=== PATIENT | male | born 1960 | race Caucasian/White ===

== ENCOUNTER 2022-07-23 07:53 | Emergency (ER) | payer BC, OTHER ==
--- OUTSIDE RECORDS SUMMARY | 2022-07-23 08:00 | XMS REPORT | Continuity of Care Document ---
:1960 Author Organization [facility] t Address [address] [place] [address] Care Team Providers Name Role Phone RENITA CUELLO Primary Care Physician Unavailable Renita Cuello Attending Clinician Unavailable Booker Verdin Attending Clinician Unavailable BHAVNA GANNON Attending Clinician Unavailable Bhavna Gannon MD Attending Clinician Doctor Unassigned, [place] Attending Clinician Unavailable Payers Payer Name Policy Type Policy Number Effective Date Expiration Date S dre Blue Cross 6 [id number] 2017 Common Sp[facility] t Blue Shield of 00:00:00 - [facility] HEALTH [id number] 2017 SELECT 00:00:00 Problems Condition Condition Condition Status Onset Resolution Last Treating Co mments Source Name Details Category Date Date Treatment Clinician Date No known No known Disease Unive rs active active ity of problems problems [facility] [id number] Severe Problem Common obesity Spirit (BMI >= - CHI 40) [facility] [id number] RBBB Problem Common [facility] - [facility] [id number] Cardiac Problem Commo n arrhythmia Spirit , - CHI unspecifie St d cardiac [facility] arrhythmia Medica l type Center Obstructiv Obstructiv Problem C ommon e sleep e sleep Spirit apnea apnea - [facility] (adult) (pediatric [facility] ) [facility] Type II Type 2 Problem Common diabetes diabetes Spirit mellitus - CHI without St complicati [facility] on Medical Center Hyperlipid Hyperlipid Problem C ommon emia emia Spirit - [facility] Hypertensi Hypertensi Problem C ommon on on Spirit - [facility] [id number] Dependence Problem Co mmon on other Spirit enabling - CHI machines [facility] [id number] Obesity, Problem Comm on unspecifie Spirit d - [facility] [id number] Type 2 Problem Common diabetes Spirit mellitus - [facility]I with other St specified [facility] complicati Medica l on Center [id number] Essential Problem Comm on hypertensi Spirit on - [facility] [id number] Depression Problem Com mon with Spirit anxiety - [facility] [id number] Difficulty Problem Co mmon sleeping Spirit - [facility] [id number] Irritabili Problem Co mmon ty and Spirit anger - [facility] [id number] Work-relat Problem Co mmon ed stress Spirit - [facility] [id number] Obesity Problem Commo n (BMI Spirit 30-39.9) - [facility] [id number] Erectile Problem Comm on dysfunctio Spirit n, - CHI unspecifie d erectile [facility] dysfunctio Medica l n type Center [id number] Osteoarthr Problem C ommon [id number] itis of Spirit right - CHI knee, St unspecifie [facility] d Medical osteoarthr Center itis type [id number] Mixed Problem Common hyperlipid Spirit emia - [facility] [id number] Arthritis Problem Co mmon [id number] of knee, Spirit left - [facility] [id number] Seasonal Problem Comm on allergies Spirit - [facility] [id number] Diabetic Problem Comm on polyneurop Spirit athy - CHI associated St with type [facility] 2 diabetes Medica l mellitus Center [id number] Bilateral Problem Com mon primary Spirit osteoarthr - [facility]I itis of [facility] [id number] Other Problem Common chronic Spirit pain - [facility] Allergies, Adverse Reactions, Alerts Allergy Allergy Status Severity Reaction(s) Onset Inactive Treating Comm ents Source Name Type Date Date Clinician NO KNOWN Drug Active Univers ALLERGIE Class ity of S [facility] Social History Social Habit Start Date Stop Date Quantity Comments Source History of Common Spirit - Tobacco Use [facility] Sex Assigned At Common Sp glory - [facility] Exposure to 2022-04-09 2022-04-19 Not sure University [facility]-CoV-2 00:00:00 08:21:00 [facility] (event) [place] Tobacco use and 2022-04-19 2022-04-19 Smokeless tobacco Un iversity of exposure 00:00:00 00:00:00 non-user [facility] Alcohol intake 2022-04-19 2022-04-19 Lifetime University of 00:00:00 00:00:00 non-drinker [facility] [place] [facility] (finding) [place] Smoking Status Start Date Stop Date Source Never Smoker [facility] Former Smoker 2021-09-06 00:00:00 2021-09-06 00:00:00 [facility] pirit [facility] Medications Ordered Filled Start Stop Current Ordering Indication Dosage Frequency Signature Comments Components Source Medication Medication Date Date Medication? Clinician (SIG) Name Name modafiniL Yes Univers 200 mg 8-29 ity of tablet 00:00: [address] modafiniL Yes Univers 200 mg 8-29 ity of tablet 00:00: [address] Modafinil Modafinil No Modafinil 200 MG 200 MG 8-29 200 MG 00:00: 00 Modafinil Modafinil 0 No Modafinil 200 MG 200 MG 8-29 200 MG 00:00: 00 Modafinil Modafinil 0 No Modafinil 200 MG 200 MG 8-29 200 MG 00:00: 00 BINAXNOW Yes TEST Univer s COVID-19 AG 8-05 DIRECTED ity of SELF TEST 00:00: TODAY [address] BINAXNOW 0 Yes TEST Univer s COVID-19 AG 8-05 DIRECTED ity of SELF TEST 00:00: TODAY [address] atorvastati Yes 10mg Take 10 mg Univers n 10 mg 8-01 by mouth ity of tablet 00:00: in the [place] 00 morning. Medical Branch TRULICITY Yes INJECT Univer s 4.5 mg/0.5 8-01 4.5MG ity of mL PnIj 00:00: UNDER THE [place] 00 SKIN ONCE Medical A WEEK Branch JARDIANCE Yes Univers 25 mg Tab 8-01 ity of 00:00: [place] [facility] lisinopriL- Yes 1{tbl} Take 1 Un maricel hydrochloro 8-01 tablet by ity of thiazide 00:00: mouth in [place] 20-25 mg 00 the Medical per tablet morning. [facility] atorvastati Yes 10mg Take 10 mg Univers n 10 mg 8-01 by mouth ity of tablet 00:00: in the [place] morning. Medical Branch TRULICITY Yes INJECT Univer s 4.5 mg/0.5 8- 4.5MG ity of mL PnIj 00:00: UNDER THE [place] 00 SKIN ONCE Medical A WEEK Branch JARDIANCE Yes Univers 25 mg Tab 8- ity of 00:00: [place] [facility] lisinopriL- Yes 1{tbl} Take 1 Un maricel hydrochloro 8-01 tablet by ity of thiazide 00:00: mouth in [place] 20-25 mg 00 the Medical per tablet morning. [facility] Trulicity Trulicity 2022- No Trulicity 4.5 4.5 03-18 4.5 MG/0.5ML MG/0.5ML 00:00: 00:00 MG/0.5ML 00 :00 Trulicity Trulicity 2022- No Trulicity 4.5 4.5 8-09-13 4.5 MG/0.5ML MG/0.5ML 00:00: 00:00 MG/0.5ML 00 :00 Trulicity Trulicity 2021-2022- No Trulicity 4.5 4.5 8-09-13 4.5 MG/0.5ML MG/0.5ML 00:00: 00:00 MG/0.5ML 00 :00 Trulicity Trulicity 2022- No Trulicity 4.5 4.5 8-09-13 4.5 MG/0.5ML MG/0.5ML 00:00: 00:00 MG/0.5ML 00 :00 Modafinil Modafinil 2022-0 2022- No QD Modafinil 200 MG 200 MG 03-14 200 MG 00:00: 00:00 00 :00 Modafinil Modafinil 2022-0 2022- No QD Modafinil 200 MG 200 MG 03-14 200 MG 00:00: 00:00 00 :00 Modafinil Modafinil 2022-0 2022- No QD Modafinil 200 MG 200 MG 03-14 200 MG 00:00: 00:00 00 :00 Modafinil Modafinil 2022-0 2022- No QD Modafinil 200 MG 200 MG 03-14 200 MG 00:00: 00:00 00 :00 Modafinil Modafinil 2022-0 2022- No QD Modafinil 200 MG 200 MG 02-11 200 MG 00:00: 00:00 00 :00 Modafinil Modafinil 2022-0 2022- No QD Modafinil 200 MG 200 MG 02-11 200 MG 00:00: 00:00 00 :00 Modafinil Modafinil 2022-0 No Modafinil 200 MG 200 MG 2-04 200 MG 00:00: 00 Modafinil Modafinil 2022-0 No Modafinil 200 MG 200 MG 2-04 200 MG 00:00: 00 Trulicity Trulicity 2-0 2022- No Trulicity 1.5mg/0.5ml 1.5mg/0.5ml 08-30 1.5mg/0.5m 00:00: 00:00 l 00 :00 Trulicity Trulicity 2022-0 2022- No Trulicity 1.5mg/0.5ml 1.5mg/0.5ml 08-30 1.5mg/0.5m 00:00: 00:00 l 00 :00 Trulicity Trulicity 2-0 2022- No Trulicity 1.5mg/0.5ml 1.5mg/0.5ml -13 07-12 1.5mg/0.5m 00:00: 00:00 l 00 :00 Modafinil Modafinil 2020- 2022- No 1{table QD Modafinil 200 MG 200 MG 10-10 t_in_th 200 MG 00:00: 00:00 e_morni 00 :00 ng} Modafinil Modafinil 2020- 2022- No 1{table QD Modafinil 200 MG 200 MG 10-10 t_in_th 200 MG 00:00: 00:00 e_morni 00 :00 ng} Modafinil Modafinil 2020-2- No 1{table QD Modafinil 200 MG 200 MG 10-10 t_in_th 200 MG 00:00: 00:00 e_morni 00 :00 ng} Modafinil Modafinil 2020-1 No Modafinil 200 MG 200 MG 0-15 200 MG 00:00: 00 Modafinil Modafinil 2020-1 No Modafinil 200 MG 200 MG 0-15 200 MG 00:00: 00 Modafinil Modafinil 2020-1 No Modafinil 200 MG 200 MG 0-15 200 MG 00:00: 00 Modafinil Modafinil 2020-1 No Modafinil 200 MG 200 MG 0-15 200 MG 00:00: 00 Modafinil Modafinil 2021-0 No 1{table QD Modafinil 200 200 9-08 t_in_th 200 00:00: e_morni 00 ng} Modafinil Modafinil 2021-0 No 1{table QD Modafinil 200.000 200.000 9-08 t_in_th 200.000 00:00: e_morni 00 ng} Modafinil Modafinil 2021-0 No 1{table QD Modafinil 200 200 9-08 t_in_th 200 00:00: e_morni 00 ng} Modafinil Modafinil 2021-0 No 1{table QD Modafinil 200.000 200.000 9-08 t_in_th 200.000 00:00: e_morni 00 ng} Modafinil Modafinil 2021-0 No 1{table QD Modafinil 200 200 -08 t_in_th 200 00:00: e_morni 00 ng} Modafinil Modafinil 2021-0 No 1{table QD Modafinil 200.000 200.000 - t_in_th 200.000 00:00: e_morni 00 ng} Modafinil Modafinil 2021-0 No 1{table QD Modafinil 200.000 200.000 - t_in_th 200.000 00:00: e_morni 00 ng} Modafinil Modafinil 2021-0 No 1{table QD Modafinil 200 200 - t_in_th 200 00:00: e_morni 00 ng} Modafinil Modafinil 2021-0 2021- No 1{table QD Modafinil 200 MG 200 MG 04-25 t_in_th 200 MG 00:00: 00:00 e_morni 00 :00 ng} Modafinil Modafinil 2021-0 2021- No 1{table QD Modafinil 200 MG 200 MG 04-25 t_in_th 200 MG 00:00: 00:00 e_morni 00 :00 ng} Modafinil Modafinil 2021-0 2021- No 1{table QD Modafinil 200 MG 200 MG 04-25 t_in_th 200 MG 00:00: 00:00 e_morni 00 :00 ng} Hyalgan 20 Hyalgan 20 2020-0 No 20mg C ommon mg mg 02-20 Spirit 00:00: - [facility] Hyalgan 20 Hyalgan 20 2020-0 No 20mg C ommon mg mg 02-20 Spirit 00:00: - [facility] Hyalgan 20 Hyalgan 20 2020-0 No 20mg C ommon mg mg 02-20 Spirit 00:00: - [facility] Hyalgan 20 Hyalgan 20 1-0 No 20mg C ommon mg mg 02-20 Spirit 00:00: - [facility] Hyalgan 20 Hyalgan 20 2020-0 No 20mg C ommon mg mg 02-20 Spirit 00:00: - [facility] Hyalgan 20 Hyalgan 20 2020-0 No 20mg C ommon mg mg 02-20 Spirit 00:00: - [facility] Hyalgan 20 Hyalgan 20 2020-0 No 20mg C ommon mg mg 02-20 Spirit 00:00: - [facility] Hyalgan 20 Hyalgan 20 2020-0 No 20mg C ommon mg mg 02-20 Spirit 00:00: - [facility] Hyalgan 20 Hyalgan 20 2020-0 No 20mg C ommon mg mg 02-20 Spirit 00:00: - [facility] Hyalgan 20 Hyalgan 20 2020-0 No 20mg C ommon mg mg 02-20 Spirit 00:00: - [facility] Hyalgan 20 Hyalgan 20 2020-0 No 20mg C ommon mg mg 02-20 Spirit 00:00: - [facility] Hyalgan 20 Hyalgan 20 2020-0 No 20mg C ommon mg mg 02-20 Spirit 00:00: - [facility] Hyalgan 20 Hyalgan 20 2020-0 No 20mg C ommon mg mg 02-14 Spirit 00:00: - [facility] Bupivicaine Bupivicaine 2020-0 No Common [place] -30 Spirit 00:00: - [facility] Kenalog Kenalog 2020-0 No 40mg Common (Triamcinol (Triamcinol 6-30 S pirit one) one) 00:00: - [facility] Hyalgan 20 Hyalgan 20 2020-0 No 20mg C ommon mg mg 02-14 Spirit 00:00: - [facility] Bupivicaine Bupivicaine 2020-0 No Common [place] -30 Spirit 00:00: - [facility] Kenalog Kenalog 2020-0 No 40mg Common (Triamcinol (Triamcinol 6-30 S pirit one) one) 00:00: - [facility] Hyalgan 20 Hyalgan 20 2020-0 No 20mg C ommon mg mg 6-30 Spirit 00:00: - [facility]I 00 [facility] Bupivicaine Bupivicaine 2020-0 No Common [place] 6-30 Spirit 00:00: - [facility]I 00 [facility] Kenalog Kenalog 2020-0 No 40mg Common (Triamcinol (Triamcinol 6-30 S pirit one) one) 00:00: - [facility]I 00 [facility] Hyalgan 20 Hyalgan 20 2020-0 No 20mg C ommon mg mg 6-30 Spirit 00:00: - [facility] 00 [facility] Bupivicaine Bupivicaine 2020-0 No 2.5mg Common [place] 6-30 Spirit 00:00: - [facility] 00 [facility] Kenalog Kenalog 2020-0 No 40mg Common (Triamcinol (Triamcinol 6-30 S pirit one) one) 00:00: - [facility]I 00 [facility] Hyalgan 20 Hyalgan 20 2020-0 No 20mg C ommon mg mg 6-30 Spirit 00:00: - [facility] 00 [facility] Bupivicaine Bupivicaine 2020-0 No 2.5mg Common [place] 6-30 Spirit 00:00: - [facility] 00 [facility] Kenalog Kenalog 2020-0 No 40mg Common (Triamcinol (Triamcinol 6-30 S pirit one) one) 00:00: - [facility] 00 [facility] Hyalgan 20 Hyalgan 20 2020-0 No 20mg C ommon mg mg 6-30 Spirit 00:00: - [facility] 00 [facility] Bupivicaine Bupivicaine 2020-0 No 2.5mg Common [place] 6-30 Spirit 00:00: - [facility] 00 [facility] Kenalog Kenalog 2020-0 No 40mg Common (Triamcinol (Triamcinol 6-30 S pirit one) one) 00:00: - [facility]I 00 [facility] Hyalgan 20 Hyalgan 20 2020-0 No 20mg C ommon mg mg 6-30 Spirit 00:00: - [facility] 00 [facility] Bupivicaine Bupivicaine 2021-0 No 2.5mg Common [place] 6-30 Spirit 00:00: - [facility] 00 [facility] Kenalog Kenalog 2020-0 No 40mg Common (Triamcinol (Triamcinol 6-30 S pirit one) one) 00:00: - [facility]I 00 [facility] Hyalgan 20 Hyalgan 20 2020-0 No 20mg C ommon mg mg 6-30 Spirit 00:00: - [facility] 00 [facility] Bupivicaine Bupivicaine 2020-0 No 2.5mg Common [place] 6-30 Spirit 00:00: - [facility] 00 [facility] Kenalog Kenalog 2020-0 No 40mg Common (Triamcinol (Triamcinol 6-30 S pirit one) one) 00:00: - [facility]I 00 [facility] Hyalgan 20 Hyalgan 20 2020-0 No 20mg C ommon mg mg 6-30 Spirit 00:00: - [facility] 00 [facility] Bupivicaine Bupivicaine 2020-0 No 2.5mg Common [place] 6-30 Spirit 00:00: - [facility] 00 [facility] Kenalog Kenalog 0 No 40mg Common (Triamcinol (Triamcinol 6-30 S pirit one) one) 00:00: - [facility] 00 [facility] Hyalgan 20 Hyalgan 20 2020-0 No 20mg C ommon mg mg 6-30 Spirit 00:00: - [facility] Bupivicaine Bupivicaine 2020-0 No 2.5mg Common [place] 6-30 Spirit 00:00: - [facility] 00 [facility] Kenalog Kenalog 2020-0 No 40mg Common (Triamcinol (Triamcinol 6-30 S pirit one) one) 00:00: - [facility] 00 [facility] Hyalgan 20 Hyalgan 20 2020-0 No 20mg C ommon mg mg 6-30 Spirit 00:00: - [facility] 00 [facility] Bupivicaine Bupivicaine 2020-0 No 2.5mg Common [place] 6-30 Spirit 00:00: - [facility] 00 [facility] Kenalog Kenalog 2020-0 No 40mg Common (Triamcinol (Triamcinol 6-30 S pirit one) one) 00:00: - [facility] Hyalgan 20 Hyalgan 20 2020-0 No 20mg C ommon mg mg 02-14 Spirit 00:00: - [facility] Bupivicaine Bupivicaine 2020-0 No 2.5mg Common [place] 02-14 Spirit 00:00: - [facility] Kenalog Kenalog 2020-0 No 40mg Common (Triamcinol (Triamcinol 6-30 S pirit one) one) 00:00: - [facility] Hyalgan 20 Hyalgan 20 2020-0 No 20mg C ommon mg mg 3 Spirit 00:00: - [facility] Hyalgan 20 Hyalgan 20 2020-0 No 20mg C ommon mg mg 10-23 Spirit 00:00: - [facility] Hyalgan 20 Hyalgan 20 2020-0 No 20mg C ommon mg mg 3 Spirit 00:00: - [facility] Hyalgan 20 Hyalgan 20 2020-0 No 20mg C ommon mg mg 3 Spirit 00:00: - [facility] Hyalgan 20 Hyalgan 20 2020-0 No 20mg C ommon mg mg 10-23 Spirit 00:00: - [facility] Hyalgan 20 Hyalgan 20 2020-0 No 20mg C ommon mg mg 3 Spirit 00:00: - [facility] Hyalgan 20 Hyalgan 20 2020-0 No 20mg C ommon mg mg 3 Spirit 00:00: - [facility] Hyalgan 20 Hyalgan 20 2020-0 No 20mg C ommon mg mg 3 Spirit 00:00: - [facility] Hyalgan 20 Hyalgan 20 2020-0 No 20mg C ommon mg mg 3 Spirit 00:00: - [facility] Hyalgan 20 Hyalgan 20 2020-0 No 20mg C ommon mg mg 3 Spirit 00:00: - [facility] Hyalgan 20 Hyalgan 20 2020-0 No 20mg C ommon mg mg 3-08 Spirit 00:00: - [facility] 00 [facility] Hyalgan 20 Hyalgan 20 2020-0 No 20mg C ommon mg mg 3 Spirit 00:00: - [facility] Hyalgan 20 Hyalgan 20 2020-0 No 20mg C ommon mg mg 09-19 Spirit 00:00: - [facility] Hyalgan 20 Hyalgan 20 2020-0 No 20mg C ommon mg mg 2 Spirit 00:00: - [facility] Hyalgan 20 Hyalgan 20 2020-0 No 20mg C ommon mg mg 2 Spirit 00:00: - [facility] Hyalgan 20 Hyalgan 20 2020-0 No 20mg C ommon mg mg 09-19 Spirit 00:00: - [facility] Hyalgan 20 Hyalgan 20 2020-0 No 20mg C ommon mg mg 2 Spirit 00:00: - [facility] Hyalgan 20 Hyalgan 20 2020-0 No 20mg C ommon mg mg 2 Spirit 00:00: - [facility] Hyalgan 20 Hyalgan 20 2020-0 No 20mg C ommon mg mg 09-19 Spirit 00:00: - [facility] Hyalgan 20 Hyalgan 20 2020-0 No 20mg C ommon mg mg 09-19 Spirit 00:00: - [facility] Hyalgan 20 Hyalgan 20 2020-0 No 20mg C ommon mg mg 2 Spirit 00:00: - [facility] Hyalgan 20 Hyalgan 20 2020-0 No 20mg C ommon mg mg 2 Spirit 00:00: - [facility] Hyalgan 20 Hyalgan 20 2020-0 No 20mg C ommon mg mg 2 Spirit 00:00: - [facility] Hyalgan 20 Hyalgan 20 2020-0 No 20mg C ommon mg mg 2 Spirit 00:00: - [facility] Hyalgan 20 Hyalgan 20 2020-0 No 20mg C ommon mg mg 09-11 Spirit 00:00: - [facility] Hyalgan 20 Hyalgan 20 2020-0 No 20mg C ommon mg mg 1-25 Spirit 00:00: - [facility] Hyalgan 20 Hyalgan 20 2020-0 No 20mg C ommon mg mg -25 Spirit 00:00: - [facility] 00 [facility] Hyalgan 20 Hyalgan 20 2020-0 No 20mg C ommon mg mg -25 Spirit 00:00: - [facility] 00 [facility] Hyalgan 20 Hyalgan 20 2020-0 No 20mg C ommon mg mg -25 Spirit 00:00: - [facility] Hyalgan 20 Hyalgan 20 2020-0 No 20mg C ommon mg mg -25 Spirit 00:00: - [facility] 00 [facility] Hyalgan 20 Hyalgan 20 2020-0 No 20mg C ommon mg mg -25 Spirit 00:00: - [facility] Hyalgan 20 Hyalgan 20 2020-0 No 20mg C ommon mg mg -25 Spirit 00:00: - [facility] Hyalgan 20 Hyalgan 20 2020-0 No 20mg C ommon mg mg 25 Spirit 00:00: - [facility] Hyalgan 20 Hyalgan 20 2020-0 No 20mg C ommon mg mg -25 Spirit 00:00: - [facility] Hyalgan 20 Hyalgan 20 2020-0 No 20mg C ommon mg mg -25 Spirit 00:00: - [facility] Hyalgan 20 Hyalgan 20 2020-0 No 20mg C ommon mg mg -25 Spirit 00:00: - [facility] Bupivicaine Bupivicaine 2020-1 No Common [place] 1-24 Spirit 00:00: - [facility] 00 [facility] Kenalog Kenalog 2020-1 No 40mg Common (Triamcinol (Triamcinol 1-24 S pirit one) one) 00:00: - [facility] 00 [facility] Bupivicaine Bupivicaine 2020-1 No Common [place] 1-24 Spirit 00:00: - [facility] 00 [facility] Kenalog Kenalog 2020-1 No 40mg Common (Triamcinol (Triamcinol 1-24 S pirit one) one) 00:00: - [facility] 00 [facility] Bupivicaine Bupivicaine 2020-1 No Common [place] 1-24 Spirit 00:00: - [facility] 00 [facility] Kenalog Kenalog 2019-1 No 40mg Common (Triamcinol (Triamcinol 1-24 S pirit one) one) 00:00: - [facility] 00 [facility] Bupivicaine Bupivicaine 2020-1 No 2.5mg Common [place] 1-24 Spirit 00:00: - [facility] 00 [facility] Kenalog Kenalog 2020-1 No 40mg Common (Triamcinol (Triamcinol 1-24 S pirit one) one) 00:00: - [facility] 00 [facility] Bupivicaine Bupivicaine 2020-1 No 2.5mg Common [place] 1-24 Spirit 00:00: - [facility] 00 [facility] Kenalog Kenalog 2020-1 No 40mg Common (Triamcinol (Triamcinol 1-24 S pirit one) one) 00:00: - [facility] 00 [facility] Bupivicaine Bupivicaine 2020-1 No 2.5mg Common [place] 1-24 Spirit 00:00: - [facility] 00 [facility] Kenalog Kenalog 2020-1 No 40mg Common (Triamcinol (Triamcinol 1-24 S pirit one) one) 00:00: - [facility] 00 [facility] Bupivicaine Bupivicaine 2020-1 No 2.5mg Common [place] 1-24 [facility] 00:00: - [facility] 00 [facility] Kenalog Kenalog 2020-1 No 40mg Common (Triamcinol (Triamcinol 1-24 S pirit one) one) 00:00: - [facility] Bupivicaine Bupivicaine 2020-1 No 2.5mg Common [place] 1-24 [facility] 00:00: - [facility] 00 [facility] Kenalog Kenalog 2020-1 No 40mg Common (Triamcinol (Triamcinol 1-24 S pirit one) one) 00:00: - [facility] 00 [facility] Bupivicaine Bupivicaine 2020-1 No 2.5mg Common [place] 1-24 [facility] 00:00: - [facility] 00 [facility] Kenalog Kenalog 2019- No 40mg Common (Triamcinol (Triamcinol 1-24 S pirit one) one) 00:00: - [facility] Bupivicaine Bupivicaine 2020- No 2.5mg Common [place] 1-24 [facility] 00:00: - [facility] Kenalog Kenalog 2019- No 40mg Common (Triamcinol (Triamcinol 1-24 S pirit one) one) 00:00: - [facility] 00 [facility] Bupivicaine Bupivicaine 2019-1 No 2.5mg Common [place] 1-24 [facility] 00:00: - [facility] Kenalog Kenalog 2019- No 40mg Common (Triamcinol (Triamcinol 1-24 S pirit one) one) 00:00: - [facility] Bupivicaine Bupivicaine 2019- No 2.5mg Common [place] 1-24 [facility] 00:00: - [facility] Kenalog Kenalog 2019- No 40mg Common (Triamcinol (Triamcinol 1-24 S pirit one) one) 00:00: - [facility] Gabapentin Gabapentin 2019-0 Yes Na Cuello as Common 8-12 directed Spirit 00:00: - [facility] Victoza Victoza Yes Na Cuello 1.8 mg Comm on [facility] Jardiance Jardiance Yes Na Cuello 1 TAB(S) Common ORALLY Spirit ONCE A DAY - CHI (IN THE [facility] Atorvastati Atorvastati Yes Na Cuello TAKE 1 Common n Calcium n Calcium TABLET BY Spirit MOUTH ONCE - CHI DAILY. [facility] Lisinopril- Lisinopril- Yes Na Cuello TAKE 1 Common Hydrochloro Hydrochloro TABLET BY Spirit thiazide thiazide MOUTH - CHI EVERY DAY [facility] Lisinopril- Lisinopril- Yes Na Cuello TAKE 1 Common Hydrochloro Hydrochloro TABLET BY Spirit thiazide thiazide MOUTH - CHI EVERY DAY [facility] Xanax Xanax Yes Na [place] 1 tablet Common [facility] Metformin Metformin Yes Na Cuello 1 tablet Common HCl HCl with a Spirit meal - [facility] Flonase Flonase Yes Na Cuello 2 spray in Common each Spirit nostril - [facility] Modafinil Modafinil Yes Na [place]ello 1 tablet Common in the Spirit morning - [facility] Atorvastati Atorvastati Yes Na Cuello 1 tablet Common n Calcium n Calcium Spiri t [facility] Jardiance Jardiance Yes Na Cuello TAKE 1 Common TABLET BY Spirit MOUTH - CHI EVERY St MORNING. [facility] Atorvastati Atorvastati Yes Na Cuello 1 tablet Common n Calcium n Calcium Spiri t [facility] Lexapro Lexapro Yes Na Cuello 1 tablet Co mmon Spirit [facility] Metformin Metformin Yes Na [place]ello TAKE 1 Common HCl HCl TABLET BY Spirit MOUTH - CHI TWICE St DAILY WITH [facility] Flonase 50 Flonase 50 No 2{spray QD Flonase 50 MCG/DOSE MCG/DOSE _in_eac MCG/DOSE h_nostr il} Atorvastati Atorvastati No Atorvastat n Calcium n Calcium in Calcium 10 MG 10 MG 10 MG Atorvastati Atorvastati No 1{table QD Atorvastat n Calcium n Calcium t} in Calcium 10 10 10 Fluticasone Fluticasone No Fluticason Propionate Propionate e 50 MCG/ACT 50 MCG/ACT Propionate 50 MCG/ACT metFORMIN metFORMIN No 1{table BID metFORMIN HCl 1000 MG HCl 1000 MG t_with_ HCl 1000 a_meal} MG metFORMIN metFORMIN No 1{table BID metFORMIN HCl 1000 HCl 1000 t_with_ HCl 1000 a_meal} Jardiance Jardiance No Jardiance 25 MG 25 MG 25 MG Atorvastati Atorvastati No 1{table QD Atorvastat n Calcium n Calcium t} in Calcium 10 MG 10 MG 10 MG Lisinopril- Lisinopril- No QD Lisinopril hydroCHLORO hydroCHLORO -hydroCHLO thiazide thiazide ROthiazide 20-25 MG 20-25 MG 20-25 MG Lisinopril- Lisinopril- No Lisinopril hydroCHLORO hydroCHLORO -hydroCHLO thiazide thiazide ROthiazide 20-25 MG 20-25 MG 20-25 MG Victoza 18 Victoza 18 No QD Victoza 18 MG/3ML MG/3ML MG/3ML Gabapentin Gabapentin No Gabapentin 300 MG 300 MG 300 MG Xanax 0.5 Xanax 0.5 No 1{table Xanax 0.5 MG MG t} MG metFORMIN metFORMIN No metFORMIN HCl 1000 MG HCl 1000 MG HCl 1000 MG Lexapro 10 Lexapro 10 No 1{table QD Lexapro 10 t} Flonase 50 Flonase 50 No 2{spray QD Flonase 50 MCG/DOSE MCG/DOSE _in_eac MCG/DOSE h_nostr il} Atorvastati Atorvastati No Atorvastat n Calcium n Calcium in Calcium 10 MG 10 MG 10 MG Atorvastati Atorvastati No 1{table QD Atorvastat n Calcium n Calcium t} in Calcium 10 10 10 Fluticasone Fluticasone No Fluticason Propionate Propionate e 50 MCG/ACT 50 MCG/ACT Propionate 50 MCG/ACT metFORMIN metFORMIN No 1{table BID metFORMIN HCl 1000 MG HCl 1000 MG t_with_ HCl 1000 a_meal} MG metFORMIN metFORMIN No 1{table BID metFORMIN HCl 1000 HCl 1000 t_with_ HCl 1000 a_meal} Jardiance Jardiance No Jardiance 25 MG 25 MG 25 MG Atorvastati Atorvastati No 1{table QD Atorvastat n Calcium n Calcium t} in Calcium 10 MG 10 MG 10 MG Lisinopril- Lisinopril- No QD Lisinopril hydroCHLORO hydroCHLORO -hydroCHLO thiazide thiazide ROthiazide 20-25 MG 20-25 MG 20-25 MG Lisinopril- Lisinopril- No Lisinopril hydroCHLORO hydroCHLORO -hydroCHLO thiazide thiazide ROthiazide 20-25 MG 20-25 MG 20-25 MG Victoza 18 Victoza 18 No QD Victoza 18 MG/3ML MG/3ML MG/3ML Gabapentin Gabapentin No Gabapentin 300 MG 300 MG 300 MG Xanax 0.5 Xanax 0.5 No 1{table Xanax 0.5 MG MG t} MG metFORMIN metFORMIN No metFORMIN HCl 1000 MG HCl 1000 MG HCl 1000 MG Lexapro 10 Lexapro 10 No 1{table QD Lexapro 10 t} Flonase 50 Flonase 50 No 2{spray QD Flonase 50 MCG/DOSE MCG/DOSE _in_eac MCG/DOSE h_nostr il} Atorvastati Atorvastati No Atorvastat n Calcium n Calcium in Calcium 10 MG 10 MG 10 MG Atorvastati Atorvastati No 1{table QD Atorvastat n Calcium n Calcium t} in Calcium 10 10 10 Fluticasone Fluticasone No Fluticason Propionate Propionate e 50 MCG/ACT 50 MCG/ACT Propionate 50 MCG/ACT metFORMIN metFORMIN No 1{table BID metFORMIN HCl 1000 MG HCl 1000 MG t_with_ HCl 1000 a_meal} MG metFORMIN metFORMIN No 1{table BID metFORMIN HCl 1000 HCl 1000 t_with_ HCl 1000 a_meal} Jardiance Jardiance No Jardiance 25 MG 25 MG 25 MG Atorvastati Atorvastati No 1{table QD Atorvastat n Calcium n Calcium t} in Calcium 10 MG 10 MG 10 MG Lisinopril- Lisinopril- No QD Lisinopril hydroCHLORO hydroCHLORO -hydroCHLO thiazide thiazide ROthiazide 20-25 MG 20-25 MG 20-25 MG Lisinopril- Lisinopril- No Lisinopril hydroCHLORO hydroCHLORO -hydroCHLO thiazide thiazide ROthiazide 20-25 MG 20-25 MG 20-25 MG Victoza 18 Victoza 18 No QD Victoza 18 MG/3ML MG/3ML MG/3ML Gabapentin Gabapentin No Gabapentin 300 MG 300 MG 300 MG Lexapro 10 Lexapro 10 No 1{table QD Lexapro 10 t} Atorvastati Atorvastati No Atorvastat n Calcium n Calcium in Calcium 10 MG 10 MG 10 MG Lisinopril- Lisinopril- No QD Lisinopril hydroCHLORO hydroCHLORO -hydroCHLO thiazide thiazide ROthiazide 20-25 MG 20-25 MG 20-25 MG Atorvastati Atorvastati No 1{table QD Atorvastat n Calcium n Calcium t} in Calcium 10 10 10 Victoza 18 Victoza 18 No QD Victoza 18 MG/3ML MG/3ML MG/3ML Fluticasone Fluticasone No Fluticason Propionate Propionate e 50 MCG/ACT 50 MCG/ACT Propionate 50 MCG/ACT Jardiance Jardiance No Jardiance 25 MG 25 MG 25 MG metFORMIN metFORMIN No 1{table BID metFORMIN HCl 1000 HCl 1000 t_with_ HCl 1000 a_meal} Gabapentin Gabapentin No Gabapentin 300 MG 300 MG 300 MG Atorvastati Atorvastati No 1{table QD Atorvastat n Calcium n Calcium t} in Calcium 10 MG 10 MG 10 MG Xanax 0.5 Xanax 0.5 No 1{table Xanax 0.5 MG MG t} MG metFORMIN metFORMIN No metFORMIN HCl 1000 MG HCl 1000 MG HCl 1000 MG Lisinopril- Lisinopril- No Lisinopril hydroCHLORO hydroCHLORO -hydroCHLO thiazide thiazide ROthiazide 20-25 MG 20-25 MG 20-25 MG Flonase 50 Flonase 50 No 2{spray QD Flonase 50 MCG/DOSE MCG/DOSE _in_eac MCG/DOSE h_nostr il} Lisinopril- Lisinopril- No Lisinopril hydroCHLORO hydroCHLORO -hydroCHLO thiazide thiazide ROthiazide 20-25 MG 20-25 MG 20-25 MG Gabapentin Gabapentin No Gabapentin 300 MG 300 MG 300 MG Jardiance Jardiance No Jardiance 25 MG 25 MG 25 MG Modafinil Modafinil No 1{table QD Modafinil 200 200 t_in_th 200 e_morni ng} metFORMIN metFORMIN No 1{table BID metFORMIN HCl 1000 MG HCl 1000 MG t_with_ HCl 1000 a_meal} MG metFORMIN metFORMIN No metFORMIN HCl 1000 MG HCl 1000 MG HCl 1000 MG Jardiance Jardiance No Jardiance 25 MG 25 MG 25 MG Flonase 50 Flonase 50 No 2{spray QD Flonase 50 MCG/DOSE MCG/DOSE _in_eac MCG/DOSE h_nostr il} Atorvastati Atorvastati No Atorvastat n Calcium n Calcium in Calcium 10 MG 10 MG 10 MG Trulicity Trulicity No Trulicity 0.75mg/0.5m 0.75mg/0.5m 0.75mg/0.5 l l ml Lisinopril- Lisinopril- No QD Lisinopril hydroCHLORO hydroCHLORO -hydroCHLO thiazide thiazide ROthiazide 20-25 MG 20-25 MG 20-25 MG Atorvastati Atorvastati No 1{table QD Atorvastat n Calcium n Calcium t} in Calcium 10 MG 10 MG 10 MG metFORMIN metFORMIN No metFORMIN HCl 1000 MG HCl 1000 MG HCl 1000 MG Atorvastati Atorvastati No Atorvastat n Calcium n Calcium in Calcium 10 MG 10 MG 10 MG Atorvastati Atorvastati No 1{table QD Atorvastat n Calcium n Calcium t} in Calcium 10 MG 10 MG 10 MG Jardiance Jardiance No Jardiance 25 MG 25 MG 25 MG metFORMIN metFORMIN No 1{table BID metFORMIN HCl 1000 MG HCl 1000 MG t_with_ HCl 1000 a_meal} MG Gabapentin Gabapentin No Gabapentin 300 MG 300 MG 300 MG Trulicity Trulicity No Trulicity 0.75mg/0.5m 0.75mg/0.5m 0.75mg/0.5 l l ml Jardiance Jardiance No Jardiance 25 MG 25 MG 25 MG Lisinopril- Lisinopril- No Lisinopril hydroCHLORO hydroCHLORO -hydroCHLO thiazide thiazide ROthiazide 20-25 MG 20-25 MG 20-25 MG Flonase 50 Flonase 50 No 2{spray QD Flonase 50 MCG/DOSE MCG/DOSE _in_eac MCG/DOSE h_nostr il} Modafinil Modafinil No 1{table QD Modafinil 200 200 t_in_th 200 e_morni ng} Atorvastati Atorvastati No 1{table QD Atorvastat n Calcium n Calcium t} in Calcium 10 MG 10 MG 10 MG Gabapentin Gabapentin No Gabapentin 300 MG 300 MG 300 MG Atorvastati Atorvastati No Atorvastat n Calcium n Calcium in Calcium 10 MG 10 MG 10 MG metFORMIN metFORMIN No 1{table BID metFORMIN HCl 1000 MG HCl 1000 MG t_with_ HCl 1000 a_meal} MG Flonase 50 Flonase 50 No 2{spray QD Flonase 50 MCG/DOSE MCG/DOSE _in_eac MCG/DOSE h_nostr il} Modafinil Modafinil No 1{table QD Modafinil 200 200 t_in_th 200 e_morni ng} metFORMIN metFORMIN No metFORMIN HCl 1000 MG HCl 1000 MG HCl 1000 MG Jardiance Jardiance No Jardiance 25 MG 25 MG 25 MG Lisinopril- Lisinopril- No Lisinopril hydroCHLORO hydroCHLORO -hydroCHLO thiazide thiazide ROthiazide 20-25 MG 20-25 MG 20-25 MG Trulicity Trulicity No Trulicity 0.75mg/0.5m 0.75mg/0.5m 0.75mg/0.5 l l ml Jardiance Jardiance No Jardiance 25 MG 25 MG 25 MG Lisinopril- Lisinopril- No Lisinopril hydroCHLORO hydroCHLORO -hydroCHLO thiazide thiazide ROthiazide 20-25 MG 20-25 MG 20-25 MG Modafinil Modafinil No 1{table QD Modafinil 200 200 t_in_th 200 e_morni ng} Atorvastati Atorvastati No Atorvastat n Calcium n Calcium in Calcium 10 MG 10 MG 10 MG Gabapentin Gabapentin No Gabapentin 300 MG 300 MG 300 MG Flonase 50 Flonase 50 No 2{spray QD Flonase 50 MCG/DOSE MCG/DOSE _in_eac MCG/DOSE h_nostr il} Trulicity Trulicity No Trulicity 1.5 1.5 1.5 MG/0.5ML MG/0.5ML MG/0.5ML Jardiance Jardiance No Jardiance 25 MG 25 MG 25 MG Atorvastati Atorvastati No 1{table QD Atorvastat n Calcium n Calcium t} in Calcium 10 MG 10 MG 10 MG Jardiance Jardiance No Jardiance 25 MG 25 MG 25 MG metFORMIN metFORMIN No metFORMIN HCl 1000 MG HCl 1000 MG HCl 1000 MG metFORMIN metFORMIN No 1{table BID metFORMIN HCl 1000 MG HCl 1000 MG t_with_ HCl 1000 a_meal} MG Atorvastati Atorvastati No 1{table QD Atorvastat n Calcium n Calcium t} in Calcium 10 MG 10 MG 10 MG Atorvastati Atorvastati No Atorvastat n Calcium n Calcium in Calcium 10 MG 10 MG 10 MG Modafinil Modafinil No 1{table QD Modafinil 200 200 t_in_th 200 e_morni ng} metFORMIN metFORMIN No metFORMIN HCl 1000 MG HCl 1000 MG HCl 1000 MG Lisinopril- Lisinopril- No Lisinopril hydroCHLORO hydroCHLORO -hydroCHLO thiazide thiazide ROthiazide 20-25 MG 20-25 MG 20-25 MG Flonase 50 Flonase 50 No 2{spray QD Flonase 50 MCG/DOSE MCG/DOSE _in_eac MCG/DOSE h_nostr il} Gabapentin Gabapentin No Gabapentin 300 MG 300 MG 300 MG Lisinopril- Lisinopril- No QD Lisinopril hydroCHLORO hydroCHLORO -hydroCHLO thiazide thiazide ROthiazide 20-25 MG 20-25 MG 20-25 MG metFORMIN metFORMIN No 1{table BID metFORMIN HCl 1000 MG HCl 1000 MG t_with_ HCl 1000 a_meal} MG Jardiance Jardiance No Jardiance 25 MG 25 MG 25 MG cpap cpap No cpap machine machine machine with with with supplies supplies supplies Jardiance Jardiance No Jardiance 25 MG 25 MG 25 MG Trulicity Trulicity No Trulicity 1.5 1.5 1.5 MG/0.5ML MG/0.5ML MG/0.5ML Atorvastati Atorvastati No 1{table QD Atorvastat n Calcium n Calcium t} in Calcium 10 MG 10 MG 10 MG Atorvastati Atorvastati No Atorvastat n Calcium n Calcium in Calcium 10 MG 10 MG 10 MG Modafinil Modafinil No 1{table QD Modafinil 200 200 t_in_th 200 e_morni ng} metFORMIN metFORMIN No metFORMIN HCl 1000 MG HCl 1000 MG HCl 1000 MG Lisinopril- Lisinopril- No Lisinopril hydroCHLORO hydroCHLORO -hydroCHLO thiazide thiazide ROthiazide 20-25 MG 20-25 MG 20-25 MG Flonase 50 Flonase 50 No 2{spray QD Flonase 50 MCG/DOSE MCG/DOSE _in_eac MCG/DOSE h_nostr il} Gabapentin Gabapentin No Gabapentin 300 MG 300 MG 300 MG Lisinopril- Lisinopril- No QD Lisinopril hydroCHLORO hydroCHLORO -hydroCHLO thiazide thiazide ROthiazide 20-25 MG 20-25 MG 20-25 MG metFORMIN metFORMIN No 1{table BID metFORMIN HCl 1000 MG HCl 1000 MG t_with_ HCl 1000 a_meal} MG Jardiance Jardiance No Jardiance 25 MG 25 MG 25 MG cpap cpap No cpap machine machine machine with with with supplies supplies supplies Jardiance Jardiance No Jardiance 25 MG 25 MG 25 MG Trulicity Trulicity No Trulicity 1.5 1.5 1.5 MG/0.5ML MG/0.5ML MG/0.5ML Flonase 50 Flonase 50 No 2{spray QD Flonase 50 MCG/DOSE MCG/DOSE _in_eac MCG/DOSE h_nostr il} Jardiance Jardiance No Jardiance 25 MG 25 MG 25 MG metFORMIN metFORMIN No metFORMIN HCl 1000 MG HCl 1000 MG HCl 1000 MG Lisinopril- Lisinopril- No Lisinopril hydroCHLORO hydroCHLORO -hydroCHLO thiazide thiazide ROthiazide 20-25 MG 20-25 MG 20-25 MG Lisinopril- Lisinopril- No QD Lisinopril hydroCHLORO hydroCHLORO -hydroCHLO thiazide thiazide ROthiazide 20-25 MG 20-25 MG 20-25 MG Jardiance Jardiance No Jardiance 25 MG 25 MG 25 MG metFORMIN metFORMIN No 1{table BID metFORMIN HCl 1000 MG HCl 1000 MG t_with_ HCl 1000 a_meal} MG Trulicity Trulicity No Trulicity 1.5 1.5 1.5 MG/0.5ML MG/0.5ML MG/0.5ML Gabapentin Gabapentin No Gabapentin 300 MG 300 MG 300 MG cpap cpap No cpap machine machine machine with with with supplies supplies supplies Atorvastati Atorvastati No Atorvastat n Calcium n Calcium in Calcium 10 MG 10 MG 10 MG Atorvastati Atorvastati No 1{table QD Atorvastat n Calcium n Calcium t} in Calcium 10 MG 10 MG 10 MG Atorvastati Atorvastati No Atorvastat n Calcium n Calcium in Calcium 10 MG 10 MG 10 MG Lisinopril- Lisinopril- No Lisinopril hydroCHLORO hydroCHLORO -hydroCHLO thiazide thiazide ROthiazide 20-25 MG 20-25 MG 20-25 MG Jardiance Jardiance No Jardiance 25 MG 25 MG 25 MG Trulicity Trulicity No Trulicity 1.5 1.5 1.5 MG/0.5ML MG/0.5ML MG/0.5ML Lisinopril- Lisinopril- No QD Lisinopril hydroCHLORO hydroCHLORO -hydroCHLO thiazide thiazide ROthiazide 20-25 MG 20-25 MG 20-25 MG Modafinil Modafinil No 1{table QD Modafinil 200 200 t_in_th 200 e_morni ng} Jardiance Jardiance No Jardiance 25 MG 25 MG 25 MG Trulicity 3 Trulicity 3 No Trulicity MG/0.5ML MG/0.5ML 3 MG/0.5ML metFORMIN metFORMIN No 1{table BID metFORMIN HCl 1000 MG HCl 1000 MG t_with_ HCl 1000 a_meal} MG metFORMIN metFORMIN No metFORMIN HCl 1000 MG HCl 1000 MG HCl 1000 MG Flonase 50 Flonase 50 No 2{spray QD Flonase 50 MCG/DOSE MCG/DOSE _in_eac MCG/DOSE h_nostr il} Atorvastati Atorvastati No 1{table QD Atorvastat n Calcium n Calcium t} in Calcium 10 MG 10 MG 10 MG Gabapentin Gabapentin No Gabapentin 300 MG 300 MG 300 MG cpap cpap No cpap machine machine [facility] Trulicity 3 No Trulicity MG/0.5ML MG/0.5ML 3 MG/0.5ML Atorvastati Atorvastati No 1{table QD Atorvastat n Calcium n Calcium t} in Calcium 10 MG 10 MG 10 MG metFORMIN metFORMIN No 1{table BID metFORMIN HCl 1000 MG HCl 1000 MG t_with_ HCl 1000 a_meal} MG Lisinopril- Lisinopril- No QD Lisinopril hydroCHLORO hydroCHLORO -hydroCHLO thiazide thiazide ROthiazide 20-25 MG 20-25 MG 20-25 MG cpap cpap No cpap machine machine machine with with with supplies supplies supplies Modafinil Modafinil No 1{table QD Modafinil 200 200 t_in_th 200 e_morni ng} Gabapentin Gabapentin No Gabapentin 300 MG 300 MG 300 MG Jardiance Jardiance No Jardiance 25 MG 25 MG 25 MG Flonase 50 Flonase 50 No 2{spray QD Flonase 50 MCG/DOSE MCG/DOSE _in_eac MCG/DOSE h_nostr il} Trulicity 3 Trulicity 3 No Trulicity MG/0.5ML MG/0.5ML 3 MG/0.5ML Atorvastati Atorvastati No 1{table QD Atorvastat n Calcium n Calcium t} in Calcium 10 MG 10 MG 10 MG Flonase 50 Flonase 50 No 2{spray QD Flonase 50 MCG/DOSE MCG/DOSE _in_eac MCG/DOSE h_nostr il} metFORMIN metFORMIN No 1{table BID metFORMIN HCl 1000 MG HCl 1000 MG t_with_ HCl 1000 a_meal} MG Jardiance Jardiance No Jardiance 25 MG 25 MG 25 MG Gabapentin Gabapentin No Gabapentin 300 MG 300 MG 300 MG Lisinopril- Lisinopril- No QD Lisinopril hydroCHLORO hydroCHLORO -hydroCHLO thiazide thiazide ROthiazide 20-25 MG 20-25 MG 20-25 MG cpap cpap No cpap machine machine machine with with with supplies supplies supplies Trulicity 3 Trulicity 3 No Trulicity MG/0.5ML MG/0.5ML 3 MG/0.5ML Atorvastati Atorvastati No 1{table QD Atorvastat n Calcium n Calcium t} in Calcium 10 MG 10 MG 10 MG Flonase 50 Flonase 50 No 2{spray QD Flonase 50 MCG/DOSE MCG/DOSE _in_eac MCG/DOSE h_nostr il} metFORMIN metFORMIN No 1{table BID metFORMIN HCl 1000 MG HCl 1000 MG t_with_ HCl 1000 a_meal} MG Jardiance Jardiance No Jardiance 25 MG 25 MG 25 MG Gabapentin Gabapentin No Gabapentin 300 MG 300 MG 300 MG Lisinopril- Lisinopril- No QD Lisinopril hydroCHLORO hydroCHLORO -hydroCHLO thiazide thiazide ROthiazide 20-25 MG 20-25 MG 20-25 MG cpap cpap No cpap machine machine machine with with with supplies supplies supplies Trulicity 3 Trulicity 3 No Trulicity MG/0.5ML MG/0.5ML 3 MG/0.5ML Atorvastati Atorvastati No 1{table QD Atorvastat n Calcium n Calcium t} in Calcium 10 MG 10 MG 10 MG metFORMIN metFORMIN No 1{table BID metFORMIN HCl 1000 MG HCl 1000 MG t_with_ HCl 1000 a_meal} MG cpap cpap No cpap machine machine machine with with with supplies supplies supplies Jardiance Jardiance No Jardiance 25 MG 25 MG 25 MG Gabapentin Gabapentin No Gabapentin 300 MG 300 MG 300 MG Lisinopril- Lisinopril- No QD Lisinopril hydroCHLORO hydroCHLORO -hydroCHLO thiazide thiazide ROthiazide 20-25 MG 20-25 MG 20-25 MG Flonase 50 Flonase 50 No 2{spray QD Flonase 50 MCG/DOSE MCG/DOSE _in_eac MCG/DOSE h_nostr il} Trulicity 3 Trulicity 3 No Trulicity MG/0.5ML MG/0.5ML 3 MG/0.5ML Atorvastati Atorvastati No 1{table QD Atorvastat n Calcium n Calcium t} in Calcium 10 MG 10 MG 10 MG metFORMIN metFORMIN No 1{table BID metFORMIN HCl 1000 MG HCl 1000 MG t_with_ HCl 1000 a_meal} MG cpap cpap No cpap machine machine machine with with with supplies supplies supplies Jardiance Jardiance No Jardiance 25 MG 25 MG 25 MG Gabapentin Gabapentin No Gabapentin 300 MG 300 MG 300 MG Lisinopril- Lisinopril- No QD Lisinopril hydroCHLORO hydroCHLORO -hydroCHLO thiazide thiazide ROthiazide 20-25 MG 20-25 MG 20-25 MG Flonase 50 Flonase 50 No 2{spray QD Flonase 50 MCG/DOSE MCG/DOSE _in_eac MCG/DOSE h_nostr il} Modafinil Modafinil No 1{table QD Modafinil 200 200 t_in_th 200 e_morni ng} Jardiance Jardiance No Jardiance 25 MG 25 MG 25 MG Lisinopril- Lisinopril- No QD Lisinopril hydroCHLORO hydroCHLORO -hydroCHLO thiazide thiazide ROthiazide 20-25 MG 20-25 MG 20-25 MG cpap cpap No cpap machine machine machine with with with supplies supplies supplies metFORMIN metFORMIN No 1{table BID metFORMIN HCl 1000 MG HCl 1000 MG t_with_ HCl 1000 a_meal} MG Jardiance Jardiance No Jardiance 25 MG 25 MG 25 MG Atorvastati Atorvastati No 1{table QD Atorvastat n Calcium n Calcium t} in Calcium 10 MG 10 MG 10 MG Flonase 50 Flonase 50 No 2{spray QD Flonase 50 MCG/DOSE MCG/DOSE _in_eac MCG/DOSE h_nostr il} Gabapentin Gabapentin No Gabapentin 300 MG 300 MG 300 MG Modafinil Modafinil No 1{table QD Modafinil 200 200 t_in_th 200 e_morni ng} Jardiance Jardiance No Jardiance 25 MG 25 MG 25 MG Lisinopril- Lisinopril- No QD Lisinopril hydroCHLORO hydroCHLORO -hydroCHLO thiazide thiazide ROthiazide 20-25 MG 20-25 MG 20-25 MG cpap cpap No cpap machine machine machine with with with supplies supplies supplies metFORMIN metFORMIN No 1{table BID metFORMIN HCl 1000 MG HCl 1000 MG t_with_ HCl 1000 a_meal} MG Jardiance Jardiance No Jardiance 25 MG 25 MG 25 MG Atorvastati Atorvastati No 1{table QD Atorvastat n Calcium n Calcium t} in Calcium 10 MG 10 MG 10 MG Flonase 50 Flonase 50 No 2{spray QD Flonase 50 MCG/DOSE MCG/DOSE _in_eac MCG/DOSE h_nostr il} Gabapentin Gabapentin No Gabapentin 300 MG 300 MG 300 MG Jardiance Jardiance No Jardiance 25 MG 25 MG 25 MG Lisinopril- Lisinopril- No QD Lisinopril hydroCHLORO hydroCHLORO -hydroCHLO thiazide thiazide ROthiazide 20-25 MG 20-25 MG 20-25 MG Jardiance Jardiance No Jardiance 25 MG 25 MG 25 MG Gabapentin Gabapentin No Gabapentin 300 MG 300 MG 300 MG cpap cpap No cpap machine machine machine with with with supplies supplies supplies Flonase 50 Flonase 50 No 2{spray QD Flonase 50 MCG/DOSE MCG/DOSE _in_eac MCG/DOSE h_nostr il} Atorvastati Atorvastati No 1{table QD Atorvastat n Calcium n Calcium t} in Calcium 10 MG 10 MG 10 MG metFORMIN metFORMIN No 1{table BID metFORMIN HCl 1000 MG HCl 1000 MG t_with_ HCl 1000 a_meal} MG Jardiance Jardiance No Jardiance 25 MG 25 MG 25 MG Lisinopril- Lisinopril- No QD Lisinopril hydroCHLORO hydroCHLORO -hydroCHLO thiazide thiazide ROthiazide 20-25 MG 20-25 MG 20-25 MG Jardiance Jardiance No Jardiance 25 MG 25 MG 25 MG Gabapentin Gabapentin No Gabapentin 300 MG 300 MG 300 MG cpap cpap No cpap machine machine machine with with with supplies supplies supplies Flonase 50 Flonase 50 No 2{spray QD Flonase 50 MCG/DOSE MCG/DOSE _in_eac MCG/DOSE h_nostr il} Atorvastati Atorvastati No Atorvastat n Calcium n Calcium in Calcium 10 MG 10 MG 10 MG metFORMIN metFORMIN No 1{table BID metFORMIN HCl 1000 MG HCl 1000 MG t_with_ HCl 1000 a_meal} MG metFORMIN metFORMIN No 1{table BID metFORMIN HCl 1000 MG HCl 1000 MG t_with_ HCl 1000 a_meal} MG Modafinil Modafinil No 1{table QD Modafinil 200 200 t_in_th 200 e_morni ng} Atorvastati Atorvastati No 1{table QD Atorvastat n Calcium n Calcium t} in Calcium 10 MG 10 MG 10 MG Trulicity Trulicity No Trulicity 4.5 4.5 4.5 MG/0.5ML MG/0.5ML MG/0.5ML Lisinopril- Lisinopril- No QD Lisinopril hydroCHLORO hydroCHLORO -hydroCHLO thiazide thiazide ROthiazide 20-25 MG 20-25 MG 20-25 MG Flonase 50 Flonase 50 No 2{spray QD Flonase 50 MCG/DOSE MCG/DOSE _in_eac MCG/DOSE h_nostr il} cpap cpap No cpap machine machine machine with with with supplies supplies supplies Atorvastati Atorvastati No Atorvastat n Calcium n Calcium in Calcium 10 MG 10 MG 10 MG Metoprolol Metoprolol No 1{table QD Metoprolol Succinate Succinate t} Succinate ER 50 MG ER 50 MG ER 50 MG Jardiance Jardiance No Jardiance 25 MG 25 MG 25 MG Jardiance Jardiance No Jardiance 25 MG 25 MG 25 MG Gabapentin Gabapentin No Gabapentin 300 MG 300 MG 300 MG Xanax 0.5 Xanax 0.5 No 1{table Xanax 0.5 MG MG t} MG metFORMIN metFORMIN No metFORMIN HCl 1000 MG HCl 1000 MG HCl 1000 MG Lexapro 10 Lexapro 10 No 1{table QD Lexapro 10 t} Jardiance Jardiance 2020- No QD Jardiance 25 MG 25 MG 12 25 MG 00:00 :00 Jardiance Jardiance 2020- No QD Jardiance 25 MG 25 MG 04-29 25 MG 00:00 :00 Jardiance Jardiance 2020- No QD Jardiance 25 MG 25 MG 04-29 25 MG 00:00 :00 Modafinil Modafinil 2019- No Na Cu[facility] 1 tablet [facility] [place] [address] Immunizations Ordered Immunization Filled Immunization Date Status Commen ts Source Name Name Afluria Afluria 2021-06-05 [facility]pleted [facility] Afluria Afluria 2021-06-05 Completed [facility]00 [facility] Afluria Afluria 2021-06-05 Completed [facility]:08[facility]00 [facility] Afluria Afluria 2021-06-05 [facility]pleted [facility]:08[facility]00 [facility] Afluria Afluria 2021-06-05 Completed [facility]:08[facility]00 [facility] Afluria Afluria 2021-06-05 [facility]pleted [facility]:08[facility]00 [facility] Afluria Afluria 2021-06-05 [facility]pleted [facility]:08[facility]00 [facility] Afluria Afluria 2021-06-05 [facility] - [facility] Afluria Afluria 2021-06-05 [facility]pleted [facility]:08[facility]00 [facility] Afluria Afluria 2021-06-05 [facility]pleted [facility]:08[facility]00 [facility] Afluria Afluria 2021-06-05 [facility]pleted [facility]:08[facility]00 [facility] Afluria Afluria 2021-06-05 [facility]pleted [facility]:08[facility]00 [facility] Afluria Afluria 2021-06-05 [facility]pleted [facility]:08:00 [facility] Afluria Afluria 2021-06-05 Completed [facility]:08[facility]00 [facility] Afluria Afluria 2021-06-05 [facility]pleted [facility]:08[facility]00 [facility] Afluria Afluria 2021-06-05 [facility]pleted [facility]:08[facility]00 [facility] Afluria Afluria 2021-06-05 [facility]pleted [facility]:08[facility]00 [facility] Afluria Afluria 2021-06-05 [facility]pleted [facility]:08[facility]00 [facility] Hyalgan 20 mg Hyalgan 20 mg 2021-02-20 [facility] Hyalgan 20 mg Hyalgan 20 mg 2021-02-20 [facility] Hyalgan 20 mg Hyalgan 20 mg 2021-02-20 [facility] Hyalgan 20 mg Hyalgan 20 mg 2021-02-20 [facility] Hyalgan 20 mg Hyalgan 20 mg 2021-02-20 [facility] Hyalgan 20 mg Hyalgan 20 mg 2021-02-20 [facility] Hyalgan 20 mg Hyalgan 20 mg 2021-02-20 [facility]00 [facility] Hyalgan 20 mg Hyalgan 20 mg 2021-02-14 [facility]00 [facility] Bupivicaine [place] Bupivicaine [place] 2021-02-14 [facility]pleted [facility] 09:37:00 [facility] Hyalgan 20 mg Hyalgan 20 mg 2021-02-14 [facility]00 [facility] Bupivicaine [place] Bupivicaine [place] 2021-02-14 [facility] 09:37[facility]00 [facility] Hyalgan 20 mg Hyalgan 20 mg 2021-02-14 [facility]00 [facility] Bupivicaine [place] Bupivicaine [place] 2021-02-14 [facility]pleted [facility] 09:37:00 [facility] Hyalgan 20 mg Hyalgan 20 mg 2021-02-14 [facility]00 [facility] Bupivicaine [place] Bupivicaine [place] 2021-02-14 [facility]pleted [facility] 09:37:00 [facility] Hyalgan 20 mg Hyalgan 20 mg 2021-02-14 [facility]00 [facility] Bupivicaine [place] Bupivicaine [place] 2021-02-14 [facility]pleted [facility] 09:37:00 [facility] Hyalgan 20 mg Hyalgan 20 mg 2021-02-14 [facility]00 [facility] Bupivicaine [place] Bupivicaine [place] 2021-02-14 [facility]pleted [facility] 09:37:00 [facility] Hyalgan 20 mg Hyalgan 20 mg 2021-02-14 [facility]00 [facility] Bupivicaine [place] Bupivicaine [place] 2021-02-14 [facility]pleted [facility] 09:37:00 [facility] Kenalog Kenalog 2021-02-14 Completed [facility] (Triamcinolone[facility] (Triamcinolone) 09:36:00 - [facility] Kenalog Kenalog 2021-02-14 Completed [facility] (Triamcinolone) (Triamcinolone) 09:36:00 [facility] Kenalog Kenalog 2021-02-14 Completed [facility] (Triamcinolone) (Triamcinolone) 09:36:00 [facility] Kenalog Kenalog 2021-02-14 Completed [facility] (Triamcinolone) (Triamcinolone) 09:36:00 [facility] Kenalog Kenalog 2021-02-14 Completed [facility] (Triamcinolone) (Triamcinolone) 09:36:00 [facility] Kenalog Kenalog 2021-02-14 Completed [facility] (Triamcinolone) (Triamcinolone) 09:36:00 [facility] Kenalog Kenalog 2021-02-14 Completed [facility] (Triamcinolone) (Triamcinolone) 09:36:00 [facility] Hyalgan 20 mg Hyalgan 20 mg 2020-10-23 [facility] 14[facility] Hyalgan 20 mg Hyalgan 20 mg 2020-10-23 [facility] Hyalgan 20 mg Hyalgan 20 mg 2020-10-23 [facility] 14:[facility]00 [facility] Hyalgan 20 mg Hyalgan 20 mg 2020-10-23 [facility] 14:[facility]00 [facility] Hyalgan 20 mg Hyalgan 20 mg 2020-10-23 [facility]00 [facility] Hyalgan 20 mg Hyalgan 20 mg 2020-10-23 [facility] 14:19[facility]00 [facility] Hyalgan 20 mg Hyalgan 20 mg 2020-10-23 [facility]pleted [facility] 14:19[facility]00 [facility] Hyalgan 20 mg Hyalgan 20 mg 2020-09-19 [facility]pleted [facility] 13:44:00 - [facility] Hyalgan 20 mg Hyalgan 20 mg 2020-09-19 Completed [facility] 13:44[facility]00 [facility] Hyalgan 20 mg Hyalgan 20 mg 2020-09-19 [facility]pleted [facility] 13:44[facility]00 [facility] Hyalgan 20 mg Hyalgan 20 mg 2020-09-19 Completed [facility] 13:44[facility]00 [facility] Hyalgan 20 mg Hyalgan 20 mg 2020-09-19 [facility]pleted [facility] 13:44[facility]00 [facility] Hyalgan 20 mg Hyalgan 20 mg 2020-09-19 [facility]pleted [facility] 13:44[facility]00 [facility] Hyalgan 20 mg Hyalgan 20 mg 2020-09-19 [facility]pleted [facility] 13:44[facility]00 [facility] Hyalgan 20 mg Hyalgan 20 mg 2020-09-11 [facility]pleted [facility] 15:14[facility]00 [facility] Hyalgan 20 mg Hyalgan 20 mg 2020-09-11 [facility]pleted [facility] 15:14[facility]00 [facility] Hyalgan 20 mg Hyalgan 20 mg 2020-09-11 [facility]pleted [facility]:14[facility]00 [facility] Hyalgan 20 mg Hyalgan 20 mg 2020-09-11 [facility]pleted [facility] 15:14:00 - [facility] Hyalgan 20 mg Hyalgan 20 mg 2020-09-11 [facility]:14[facility]00 [facility] Hyalgan 20 mg Hyalgan 20 mg 2020-09-11 [facility]:14[facility]00 [facility] Hyalgan 20 mg Hyalgan 20 mg 2020-09-11 [facility]pleted [facility] 15:14:00 - [facility] Bupivicaine [place] Bupivicaine [place] 2020-07-11 Completed [facility] 09:19: [facility] Bupivicaine [place] Bupivicaine [place] 2020-07-11 Completed [facility] 09:19: [facility] Bupivicaine [place] Bupivicaine [place] 2020-07-11 Completed [facility] 09:19: [facility] Bupivicaine [place] Bupivicaine [place] 2020-07-11 Completed [facility] 09:19: - [facility] Bupivicaine [place] Bupivicaine [place] 2020-07-11 Completed [facility] 09:19:00 - [facility] Bupivicaine [place] Bupivicaine [place] 2020-07-11 Completed [facility] 09:19: - [facility] Bupivicaine [place] Bupivicaine [place] 2020-07-11 Completed [facility] 09:19: [facility] Kenalog Kenalog 2020-07-11 Completed [facility] (Triamcinolone) (Triamcinolone) 09:18:00 - [facility] Kenalog Kenalog 2020-07-11 Completed [facility] (Triamcinolone) (Triamcinolone) 09:18:00 [facility] Kenalog Kenalog 2020-07-11 Completed [facility] (Triamcinolone) (Triamcinolone) 09:18:00 [facility] Kenalog Kenalog 2020-07-11 Completed [facility] (Triamcinolone) (Triamcinolone) 09:18:00 [facility] Kenalog Kenalog 2020-07-11 Completed [facility] (Triamcinolone) (Triamcinolone) 09:18:00 - [facility] Kenalog Kenalog 2020-07-11 Completed [facility] (Triamcinolone) (Triamcinolone) 09:18:00 [facility] Kenalog Kenalog 2020-07-11 Completed [facility] (Triamcinolone) (Triamcinolone) 09:18:00 [facility] Afluria single dose Afluria single dose 2019-06-18 Completed [facility] 17:10:00 [facility] Afluria single dose Afluria single dose 2019-06-18 Completed [facility] 17:10:00 [facility] Afluria single dose Afluria single dose 2019-06-18 Completed [facility] 17:10:00 [facility] Afluria single dose Afluria single dose 2019-06-18 Completed [facility] 17:10:00 [facility] Afluria single dose Afluria single dose 2019-06-18 Completed [facility] 17:10:00 [facility] Afluria single dose Afluria single dose 2019-06-18 Completed [facility] 17:10:00 [facility] Afluria single dose Afluria single dose 2019-06-18 Completed [facility] 17:10:00 [facility] Afluria single dose Afluria single dose 2019-06-18 Completed [facility] 17:10:00 [facility] Afluria single dose Afluria single dose 2019-06-18 Completed [facility] 17:10:00 [facility] Afluria single dose Afluria single dose 2019-06-18 Completed [facility] 17:10:00 [facility] Afluria single dose Afluria single dose 2019-06-18 Completed [facility] 17:10:00 [facility] Afluria single dose Afluria single dose 2019-06-18 Completed [facility] 17:10:00 [facility] Afluria single dose Afluria single dose 2019-06-18 Completed [facility] 17:10:00 [facility] Afluria single dose Afluria single dose 2019-06-18 Completed [facility] 17:10:00 [facility] Afluria single dose Afluria single dose 2019-06-18 Completed [facility] 17:10:00 [facility] Afluria single dose Afluria single dose 2019-06-18 Completed [facility] 17:10:00 - [facility] Afluria single dose Afluria single dose 2019-06-18 Completed [facility] 17:10:00 - [facility] Afluria single dose Afluria single dose 2019-06-18 Completed [facility] 17:10:00 - [facility] Afluria single dose Afluria single dose 2019-06-18 Completed [facility] 17:10:00 - [facility] Afluria single dose Afluria single dose 2019-06-18 Completed [facility] 17:10:00 - [facility] Afluria single dose Afluria single dose 2019-06-18 Completed [facility] 17:10:00 - [facility] Afluria single dose Afluria single dose 2019-06-18 Completed [facility] 17:10:00 - [facility] Afluria single dose Afluria single dose 2019-06-18 Completed [facility] 00:00:00 - [facility] Afluria Afluria 2018-06-08 Completed [facility] 10:24:00 - [facility] Afluria Afluria 2018-06-08 Completed [facility] 10:24:00 - [facility] Afluria Afluria 2018-06-08 Completed [facility] 10:24:00 - [facility] Afluria Afluria 2018-06-08 Completed [facility] 10:24:00 - [facility] Afluria Afluria 2018-06-08 Completed [facility] 10:24:00 - [facility] Afluria Afluria 2018-06-08 Completed [facility] 10:24:00 - [facility] Afluria Afluria 2018-06-08 Completed [facility] 10:24:00 - [facility] Afluria Afluria 2018-06-08 Completed [facility] 10:24:00 - [facility] Afluria Afluria 2018-06-08 Completed [facility] 10:24:00 - [facility] Afluria Afluria 2018-06-08 Completed [facility] 10:24:00 - [facility] Afluria Afluria 2018-06-08 Completed [facility] 10:24:00 - [facility] Afluria Afluria 2018-06-08 Completed [facility] 10:24:00 - [facility] Afluria Afluria 2018-06-08 Completed [facility] 10:24:00 - [facility] Afluria Afluria 2018-06-08 Completed [facility] 10:24:00 - [facility] Afluria Afluria 2018-06-08 Completed [facility] 10:24:00 - [facility] Afluria Afluria 2018-06-08 Completed [facility] 10:24:00 - [facility] Afluria Afluria 2018-06-08 Completed [facility] 10:24:00 - [facility] Afluria Afluria 2018-06-08 Completed [facility] 10::00 - [facility] Afluria Afluria 2018-06-08 Completed [facility] 10::00 - [facility] Afluria Afluria 2018-06-08 Completed [facility] 10::00 - [facility] Afluria Afluria 2018-06-08 Completed [facility] 10::00 - [facility] Vital Signs Vital Name Observation Time Observation Value Comments Source height 2022-06-21 08:40:00 71.00 [in_i] [facility] weight 2022-06-21 08:40:00 286.6 [lb_av] [facility] temperature 2022-06-21 08:40:00 98.0 [degF] [facility] bmi 2022-06-21 08:40:00 39.97 kg/m2 [facility] oximetry 2022-06-21 08:40:00 97 % [facility] respiratory rate 2022-06-21 08:40:00 16 /min Comm on [facility] blood pressure 2022-06-21 08:40:00 139 mm[Hg] [facility] systolic [facility] blood pressure 2022-06-21 08:40:00 63 mm[Hg] [facility] diastolic [facility] Systolic blood 2022-04-19 13:28:00 134 mm[Hg] [facility] Diastolic blood 2022-04-19 13:28:00 83 mm[Hg] [facility] Body height 2022-04-19 13:28:00 182.9 cm [facility] Body weight 2022-04-19 13:28:00 130.591 kg [facility] BMI 2022-04-19 13:28:00 39.05 kg/m2 [facility] height 2022-03-18 08:20:00 71.00 [in_i] [facility] weight 2022-03-18 08:20:00 298.2 [lb_av] [facility] temperature 2022-03-18 08:20:00 97.8 [degF] [facility] bmi 2022-03-18 08:20:00 41.59 kg/m2 [facility] oximetry 2022-03-18 08:20:00 97 % [facility] respiratory rate 2022-03-18 08:20:00 16 /min Comm on [facility] blood pressure 2022-03-18 08:20:00 130 mm[Hg] [facility] - systolic [facility] blood pressure 2022-03-18 08:20:00 72 mm[Hg] [facility] - diastolic [facility] height 2021-10-15 13:00:00 71.00 [in_i] [facility] weight 2021-10-15 13:00:00 296.6 [lb_av] [facility] temperature 2021-10-15 13:00:00 97.2 [degF] [facility] bmi 2021-10-15 13:00:00 41.36 kg/m2 [facility] oximetry 2021-10-15 13:00:00 96 % [facility] respiratory rate 2021-10-15 13:00:00 18 /min Comm on [facility] blood pressure 2021-10-15 13:00:00 132 mm[Hg] [facility] - systolic [facility] blood pressure 2021-10-15 13:00:00 78 mm[Hg] [facility] - diastolic [facility] height 2021-06-05 16:40:00 71.00 [in_i] [facility] weight 2021-06-05 16:40:00 295 [lb_av] [facility] temperature 2021-06-05 16:40:00 98.1 [degF] [facility] bmi 2021-06-05 16:40:00 41.14 kg/m2 [facility] oximetry 2021-06-05 16:40:00 97 % [facility] respiratory rate 2021-06-05 16:40:00 20 /min Comm on [facility] blood pressure 2021-06-05 16:40:00 120 mm[Hg] [facility] - systolic [facility] blood pressure 2021-06-05 16:40:00 64 mm[Hg] Common [facility] diastolic [facility] Procedures This patient has no known procedures. Encounters Start End Encounter Admission Attending Care Care Encounter Source Date/Time Date/Time Type Type Clinicians Facility Department ID 2022-06-19 Outpatient Cuello, Na STLMLC STLMLC [id number] Common 13:49:00 [facility] 2022-03-18 Outpatient Cuello, Na STLMLC STLMLC [id number] [facility] 08:02:00 [facility] 2022-02-28 Outpatient Cuello, Na STLMLC STLMLC [id number] [facility] 17:40:00 [facility] 2021-09-12 Outpatient Cuello, Na STLMLC STLMLC [id number] Common 14:33:53 [facility] 2021-09-12 Outpatient Cuello, Na STLMLC STLMLC [id number] 2 Common 14:15:31 [id number] [facility] 2021-09-12 Outpatient Cuello, Na STLMLC STLMLC [id number] 2 Common 13:27:47 [id number] [facility] 2021-09-12 Outpatient Cuello, Na STLMLC STLMLC [id number] 2 Common 13:25:31 [id number] [facility] 2021-09-12 Outpatient Cuello, Na STLMLC STLMLC [id number] 2 Common 12:18:26 [id number] [facility] 2021-09-12 Outpatient Cuello, Na STLMLC STLMLC [id number] Common 11:52:55 [id number] [facility] 2021-09-12 Outpatient Cuello, Na STLMLC STLMLC [id number] Common 11:36:32 [id number] [facility] 2021-09-12 Outpatient Cuello, Na STLMLC STLMLC [id number] 2 Common 11:35:56 [id number] [facility] 2021-09-12 Outpatient Cuello, Na STLMLC STLMLC [id number] 2 Common 11:23:56 [id number] [facility] 2022-07-29 2022-07-29 Inpatient XIMENA Simon SURG [id number] 08:00:00 08:00:[address] 2022-06-21 2022-06-21 OFFICE STLMLC STLMLC [id number] Co mmon 00:00:00 00:00:00 VISIT [facility] 4 [facility] 2022-06-18 2022-06-18 (TEL) STLMLC STLMLC [id number] Co mmon 00:00:00 00:00:00 [facility] 2022-04-23 2022-04-23 (TEL) STLMLC STLMLC [id number] [facility] m[facility] 00:00:00 00:00:00 [facility] 2022-04-19 2022-04-19 Outpatient Loree [facility] [id number] [facility] 08:30:00 23:59:00 BHAVNA hartman [facility] 2022-04-19 2022-04-19 [facility] [id number] Univers 08:30:00 08:57:22 Visit Bhavna [facility] [id number] it y of [place] [id number] [place] as KIRK?BLEA [id number] [place] [address] MEDICAL OFFICE BUILDING 2022-04-19 2022-04-19 [id number] Univers 08:30:00 08:30:00 BHAVNA hartman [facility] 2022-04-19 2022-04-19 Orders Doctor YASMANI [id number] Univers 00:00:00 00:00:00 Only Unassigned, [place] [id number] [facility] [id number] [place] [id number] [address] 2022-04-02 2022-04-02 (TEL) STLC STLMLC [id number] Co mmon 00:00:00 00:00:00 [facility] 2022-03-18 2022-03-18 OFFICE STLC STLC [id number] Co mmon 00:00:00 00:00:00 VISIT [facility] LEVEL 4 [facility] 2022-03-14 2022-03-14 (TEL) STLMLC STLMLC [id number] Co mmon 00:00:00 00:00:00 [facility] 2022-03-14 2022-03-14 (TEL) STLMLC STLMLC [id number] Co mmon 00:00:00 00:00:00 [facility] 2022-02-11 2022-02-11 (TEL) STLMLC STLMLC [id number] [facility] 00:00:00 00:00:00 [facility] 2022-02-11 2022-02-11 (TEL) STLMLC STLMLC [id number] [facility] 00:00:00 00:00:00 [facility] 2021-10-292021-10-29 (TEL) STLMLC STLMLC [id number] Co mmon 00:00:00 00:00:00 [facility] 2021-10-15 2021-10-15 OFFICE STLMLC STLMLC [id number] Co mmon 00:00:00 00:00:00 VISIT EST Spir it PT LEVEL 3 [facility] 2021-10-12 2021-10-12 (TEL) STLMLC STLMLC [id number] Co mmon 00:00:00 00:00:00 [facility] 2021-08-30 2021-08-30 OFFICE STLMLC STLMLC [id number] Co m[facility] 00:00:00 00:00:00 VISIT [facility] PT - CHI LEVEL 4 [facility] 2021-08-30 2021-08-30 (TEL) STLMLC STLMLC [id number] Co mmon 00:00:00 00:00:00 [facility] 2021-08-08 2021-08-08 (TEL) STLMLC STLMLC [id number] [facility] 00:00:00 00:00:00 [facility] 2021-06-11 2021-06-11 (TEL) STLMLC STLMLC [id number] Co m[facility] 00:00:00 00:00:00 [facility] 2021-06-07 2021-06-07 (TEL) STLMLC STLMLC [id number] [facility] 00:00:00 00:00:00 [facility] 2021-06-05 2021-06-05 OFFICE STLMLC STLMLC [id number] [facility] 00:00:00 00:00:00 VISIT [facility] PT - CHI LEVEL 4 [facility] 2021-06-01 2021-06-01 (TEL) STLMLC STLMLC [id number] [facility] 00:00:00 00:00:00 [facility] 2021-04-25 2021-04-25 (TEL) STLMLC STLMLC [id number] [facility] 00:00:00 00:00:00 [facility] 2021-04-25 2021-04-25 (TEL) STLMLC STLMLC [id number] [facility] 00:00:00 00:00:00 [facility] 2021-04-25 2021-04-25 (TEL) STLMLC STLMLC [id number] Co mmon 00:00:00 00:00:00 [facility] 2021-02-28 2021-02-28 Outpatient STLMLC STLMLC [id number] Common 00:00:00 00:00:00 [facility] 2021-02-28 2021-02-28 Outpatient STLMLC STLMLC [id number] Common 00:00:00 00:00:00 [facility] 2021-02-20 2021-02-20 Outpatient STLMLC STLMLC [id number] [facility] 00:00:00 00:00:00 [facility] 2021-02-14 2021-02-14 Outpatient STLMLC STLMLC [id number] [facility] 00:00:00 00:00:00 [facility] 2021-02-02 2021-02-02 Outpatient STLMLC STLMLC [id number] [facility] 00:00:00 00:00:00 [facility] 2021-01-30 2021-01-30 Outpatient STLMLC STLMLC [id number] Common 00:00:00 00:00:00 [facility] 2021-01-29 2021-01-29 Outpatient STLMLC STLMLC [id number] Common 00:00:00 00:00:00 [facility] 2020-12-26 2020-12-26 Outpatient STLMLC STLMLC [id number] [facility] 00:00:00 00:00:00 [facility] 2020-10-23 2020-10-23 Outpatient STLMLC STLMLC [id number] Common 00:00:00 00:00:00 [facility] 2020-09-25 2020-09-25 Outpatient STLMLC STLMLC [id number] Common 00:00:00 00:00:00 [facility] 2020-09-19 2020-09-19 Outpatient STLMLC STLMLC [id number] Common 00:00:00 00:00:00 [facility] 2020-09-11 2020-09-11 Outpatient STLMLC STLMLC [id number] [facility] 00:00:00 00:00:00 [facility] 2020-08-24 2020-08-24 Outpatient STLMLC STLMLC [id number] [facility] 00:00:00 00:00:00 [facility] 2020-08-23 2020-08-23 Outpatient STLMLC STLMLC [id number] Common 00:00:00 00:00:00 [facility] 2020-08-22 2020-08-22 Outpatient STLMLC STLMLC [id number] [facility] 00:00:00 00:00:00 [facility] 2020-08-22 2020-08-22 Outpatient STLMLC STLMLC [id number] [facility] 00:00:00 00:00:00 [facility] 2020-07-20 2020-07-20 Outpatient STLMLC STLMLC [id number] [facility] 00:00:00 00:00:00 [facility] 2020-07-12 2020-07-12 Outpatient STLMLC STLMLC [id number] [facility] 00:00:00 00:00:00 [facility] 2020-07-11 2020-07-11 Outpatient STLMLC STLMLC [id number] Common 00:00:00 00:00:00 [facility] 2020-07-03 2020-07-03 Outpatient STLMLC STLMLC [id number] [facility] 00:00:00 00:00:00 [facility] 2020-06-26 2020-06-26 Outpatient STLMLC STLMLC [id number] Common 00:00:00 00:00:00 [facility] 2020-06-23 2020-06-23 Outpatient STLMLC STLMLC [id number] [facility] 00:00:00 00:00:00 [facility] 2020-06-12 2020-06-12 Outpatient STLMLC STLMLC [id number] [facility] 00:00:00 00:00:00 [facility] 2020-03-28 2020-03-28 [id number] [facility] 15:40:00 15:40:00 [place] [address] [facility] 2020-03-17 2020-03-17 [facility] [id number] Common 11:43:00 11:43:00 [place] [address] [facility] 2020-01-17 2020-01-17 [facility] [id number] Common 09:00:00 09:00:00 [place] [address] [facility] 2019-12-28 2019-12-28 [facility] [id number] Common 13:09:00 13:09:00 [place] [address] [facility] 2019-07-08 2019-07-08 [facility] [id number] Common 16:50:00 16:50:00 [place] [address] [facility] 2019-06-30 2019-06-30 [facility] [id number] Common 11:00:00 11:00:00 [place] [address] [facility] [facility] 2019-06-18 2019-06-18 [facility] [id number] Common 16:20:00 16:20:00 [place] [address] [facility] 2019-04-12 2019-04-12 [facility] [id number] Common 16:40:00 16:40:00 [place] [address] [facility] 2019-03-24 2019-03-24 [facility] [id number] Common 09:43:00 09:43:00 [place] [address] [facility] [facility] 2019-03-18 2019-03-18 [facility] [id number] Common 16:31:00 16:31:00 [place] [address] [facility] [facility] 2019-03-12 2019-03-12 [facility] [id number] Common 16:35:00 16:35:00 [place] [address] [facility] [facility] 2019-03-08 2019-03-08 [facility] [id number] Common 16:37:00 16:37:00 [place] [address] [facility] 2018-11-04 2018-11-04 [facility] [id number] Common 11:15:00 11:15:00 [place] [address] [facility] [facility] 2018-10-27 2018-10-27 [facility] [id number] Common 11:05:00 11:05:00 [place] [address] [facility] 2018-07-27 2018-07-27 [facility] [id number] Common 14:15:00 14:15:00 [place] [address] [facility] [facility] 2018-05-06 2018-05-06 [facility] [id number] Common 15:38:00 15:38:00 [place] [address] [facility] [facility] 2018-05-05 2018-05-05 [facility] [id number] Common 08:51:00 08:51:00 [place] [address] [facility] [facility] 2018-05-05 2018-05-05 [facility] [id number] Common 08:00:00 08:00:00 [place] [address] [facility] 2018-04-29 2018-04-29 [facility] [id number] Common 08:15:00 08:15:00 [place] [address] [facility] 2018-04-23 2018-04-23 [facility] [id number] Common 15:00:00 15:00:00 [place] [address] [facility] Results This patient has no known results.
[2022-07-23] MEDS ORDERED: ASPIRIN 81 MG CHEWABLE TABLET ONE (08:18)
[2022-07-23] MEDS ORDERED: METOPROLOL TAR 50 MG TAB ONE (08:27)
[2022-07-23 08:37] LABS: Hematocrit 48.1 % (39.6-49.0); Lymphocytes % 20.8 % (15.3-44.8); MCV 90.2 fL (80-100); MPV 8.4 fL (7.6-11.3); RBC Red Blood Cell Count 5.33 M/uL (4.33-5.43)
--- NOTE | 2022-07-23 08:40 | RAD REPORT ---
EXAM DESCRIPTION: RAD - Chest Single View - 07/23/2022 8:24 am CLINICAL HISTORY: CHEST PAIN Chest pain. COMPARISON: CHEST PA AND LAT 2 VIEW dated 08/26/2013 FINDINGS: Portable technique limits examination quality. The lungs are grossly clear. The heart is normal in size. No displaced fractures. IMPRESSION: No acute intrathoracic process suspected.
[2022-07-23 08:41] LABS: Protime INR 0.98
[2022-07-23 09:02] LABS: Albumin 4.3 g/dL (3.4-5.0); Bilirubin Direct 0.2 mg/dL (0-0.2); Bilirubin Total 0.6 mg/dL (0.2-1.0); Magnesium 2.1 mg/dL (1.8-2.4); Potassium 4.1 mmol/L (3.5-5.1); Protein, Total 7.8 g/dL (6.4-8.2); Troponin High Sensitivity 6.5 pg/mL (<58.9)
--- NOTE | 2022-07-23 11:43 | EDPHYS ---
Physician Documentation [facility] Name: Linden Cevallos Age: 62 yrs Sex: Male : 1960 Arrival Date: 07/23/2022 Time: 07:54 Bed 5 Private MD: Rahul Crandall F; Vang, Na ED Physician Sal Jim HPI: 07/23 08:03 This 62 yrs old Male presents to ER via Unassigned with complaints of Chest Pain, snw Numbness. 08:03 The patient or guardian reports chest pain that is located primarily in the anterior snw chest wall, bilaterally. Onset: gradually. The pain does not radiate. Associated signs and symptoms: Pertinent positives: None. The chest pain is described as a pressure. Duration: The patient or guardian reports multiple episodes. Modifying factors: The symptoms are alleviated by nothing. the symptoms are aggravated by nothing. Severity of pain: At its worst the pain was mild. It is unknown whether or not the patient has had similar symptoms in the past. trying to obtain cardiac clearance. Historical: - Allergies: 08:06 Bananas; ss - Home Meds: 08:48 atorvastatin 10 mg oral tab 1 tab once daily [Active]; Jardiance 25 mg oral tab 1 tab bp once daily [Active]; lisinopril-hydrochlorothiazide 20-25 mg oral tab 1 tab once daily [Active]; Trulicity 4.5 mg/0.5 mL subcutaneous pnij 0.5 mL once wkly [Active]; metoprolol tartrate 50 mg Oral tab 1 tab 2 times per day [Active]; modafinil 200 mg oral tab 1 tab once daily [Active]; gabapentin 300 mg oral cap 1 cap 3 times per day [Active]; - PMHx: 08:06 "irregular heart beat"; ss - Immunization history:: Client reports receiving the 2nd dose of the Covid vaccine. - Social history:: Smoking status: Patient/guardian denies using tobacco, the patient reports quitting approximately 20 years ago. ROS: 08:04 Constitutional: Negative for fever, chills, and weight loss, Eyes: Negative for injury, snw pain, redness, and discharge, ENT: Negative for injury, pain, and discharge, Neck: Negative for injury, pain, and swelling. 08:04 Respiratory: Negative for shortness of breath, cough, wheezing, and pleuritic chest pain, Abdomen/GI: Negative for abdominal pain, nausea, vomiting, diarrhea, and constipation, Back: Negative for injury and pain, : Negative for injury, bleeding, discharge, and swelling, Skin: Negative for injury, rash, and discoloration, Neuro: Negative for headache, weakness, numbness, tingling, and seizure. 08:04 Cardiovascular: Positive for chest pain, of the chest. 08:04 MS/extremity: Positive for intermittent numbness to left arm. Exam: 08:05 Constitutional: This is a well developed, well nourished patient who is awake, alert, snw and in no acute distress. Head/Face: Normocephalic, atraumatic. Eyes: Pupils equal round and reactive to light, extra-ocular motions intact. Lids and lashes normal. Conjunctiva and sclera are non-icteric and not injected. Cornea within normal limits. Periorbital areas with no swelling, redness, or edema. ENT: Nares patent. No nasal discharge, no septal abnormalities noted. Tympanic membranes are normal and external auditory canals are clear. Oropharynx with no redness, swelling, or masses, exudates, or evidence of obstruction, uvula midline. Mucous membranes moist. Neck: Trachea midline, no thyromegaly or masses palpated, and no cervical lymphadenopathy. Supple, full range of motion without nuchal rigidity, or vertebral point tenderness. No Meningismus. Chest/axilla: Normal chest wall appearance and motion. Nontender with no deformity. No lesions are appreciated. Respiratory: Lungs have equal breath sounds bilaterally, clear to auscultation and percussion. No rales, rhonchi or wheezes noted. No increased work of breathing, no retractions or nasal flaring. Abdomen/GI: Soft, non-tender, with normal bowel sounds. No distension or tympany. No guarding or rebound. No evidence of tenderness throughout. Back: No spinal tenderness. No costovertebral tenderness. Full range of motion. Skin: Warm, dry with normal turgor. Normal color with no rashes, no lesions, and no evidence of cellulitis. MS/ Extremity: Pulses equal, no cyanosis. Neurovascular intact. Full, normal range of motion. Neuro: Awake and alert, GCS 15, oriented to person, place, time, and situation. Cranial nerves II-XII grossly intact. Motor strength 5/5 in all extremities. Sensory grossly intact. Cerebellar exam normal. Normal gait. Psych: Awake, alert, with orientation to person, place and time. Behavior, mood, and affect are within normal limits. 08:05 Cardiovascular: Rate: normal, Rhythm: irregular, Pulses: no pulse deficits are appreciated, Heart sounds: normal, Edema: is not appreciated. Vital Signs: 08:03 BP 147 / 63; Pulse 92; Resp 18; Temp 98.7(O); Pulse Ox 98% on R/A; Weight 127.91 kg ss (R); Height 6 ft. 0 in. (182.88 cm); Pain 6/10; 08:36 BP 137 / 62; Pulse 82; Pulse Ox 99% on R/A; ap3 09:04 BP 117 / 73; Pulse 87; Pulse Ox 99% on R/A; ap3 10:40 BP 111 / 66; Pulse 83; Resp 16; Pulse Ox 98% ; bp 08:03 Body Mass Index 38.25 (127.91 kg, 182.88 cm) ss MDM: 07:55 Patient medically screened. snw 08:07 Data reviewed: vital signs, nurses notes, EKG, tele monitor reviewed by me with NSR snw with frequent multifocal PVCs. 11:44 ECG:. The patient was not given aspirin in the Emergency Department. Patient reports snw taking aspirin within the past 24 hours. Data interpreted: teletypesetter monitor: rhythm is normal sinus rhythm, with unifocal PVCs. Counseling: I had a detailed discussion with the patient and/or guardian regarding: the historical points, exam findings, and any diagnostic results supporting the discharge/admit diagnosis, lab results, radiology results, the need for outpatient follow up, to return to the emergency department if symptoms worsen or persist or if there are any questions or concerns that arise at home. Response to treatment: the patient's symptoms have mildly improved after treatment. Special discussion: Based on the patient's history, exam, and Dx evaluation, there is no indication for emergent intervention or inpatient Tx. It is understood by the patient/guardian that if the Sx's persist or worsen they need to return immediately for re-evaluation. Based on the history and exam findings, there is no indication for further emergent testing or inpatient evaluation. I discussed with the patient/guardian the need to see the therapeutic activities services worker for further evaluation of the symptoms. I discussed with the patient/guardian the need to see the primary care provider for further evaluation of the symptoms. 07/23 08:03 Order name: Basic Metabolic Panel; Complete Time: 09:03 snw 07/23 08:03 Order name: CBC with Diff; Complete Time: 08:40 snw 07/23 08:03 Order name: LFT's; Complete Time: 09:03 snw 07/23 08:03 Order name: Magnesium; Complete Time: 09:03 snw 07/23 08:03 Order name: NT PRO-BNP; Complete Time: 09:03 snw 07/23 08:03 Order name: PT-INR; Complete Time: 08:43 snw 07/23 08:03 Order name: Troponin HS; Complete Time: 09:03 snw 07/23 08:03 Order name: XRAY Chest (1 view); Complete Time: 08:43 snw 07/23 08:03 Order name: EKG; Complete Time: 08:04 snw 07/23 08:03 Order name: Cardiac monitoring; Complete Time: 08:07 snw 07/23 08:03 Order name: EKG - Nurse/Tech; Complete Time: 08:18 snw 07/23 10:16 Order name: Troponin High Sensitivity; Complete Time: 11:04 snw 07/23 08:03 Order name: IV Saline Lock; Complete Time: 08:18 snw 07/23 08:03 Order name: Labs collected and sent; Complete Time: 08:18 snw 07/23 08:03 Order name: O2 Per Protocol; Complete Time: 08:07 snw 07/23 08:03 Order name: O2 Sat Monitoring; Complete Time: 08:07 snw 07/23 08:35 Order name: Misc. Order: Please obtain pt's med list as he stated he does not take any snw medications; Complete Time: 08:47 EC:17 Rate is 84 beats/min. Rhythm is regular. QRS interval is prolonged. Clinical snw impression: NSR w/ Non-specific ST/T Changes. Administered Medications: 08:15 Drug: Aspirin Chewable Tablet 324 mg Route: PO; bp 12:05 Follow up: Response: No adverse reaction ap3 08:34 Not Given (pt took prior to arrivall): Metoprolol TARTRATE 50 mg PO once snw Disposition: 18:44 Co-signature as Attending Physician, Sal Jim MD I agree with the assessment and kdr plan of care. Disposition Summary: 07/23/22 11:42 Discharge Ordered Location: Home snw Condition: Stable snw Diagnosis - Palpitations snw - Chest pain, unspecified snw Followup: snw - With: Emergency Department - When: As needed - Reason: Worsening of condition Followup: snw - With: Rahul Crandall MD - When: 1 - 2 days - Reason: Recheck today's complaints, Continuance of care, Re-evaluation by your physician Discharge Instructions: - Discharge Summary Sheet snw - Nonspecific Chest Pain, Adult snw - Palpitations snw - Aspirin and Your Heart snw - Form - Blood Pressure Record Sheet snw Forms: - Medication Reconciliation Form snw - Thank You Letter snw - Antibiotic Education snw - Prescription Opioid Use snw - Work release form snw Signatures: Dispatcher [employer] EDMS Sal Jim MD MD kdr Tomeka Jacinto, TALENT ACQUISITION LEAD-C TALENT ACQUISITION LEAD-Csnw Sis Mantilla RN RN ss Danyel Daniel RN RN Perla Pompa RN ap3
--- NOTE | 2022-07-23 11:43 | ER ---
Nurse's Notes [facility] Name: Linden Cevallos Age: 62 yrs Sex: Male : 1960 Arrival Date: 07/23/2022 Time: 07:54 Bed 5 Private MD: Rahul Crandall F; Vang, Na Diagnosis: Palpitations;Chest pain, unspecified Presentation: 07/23 08:03 Chief complaint: Patient states: chest pressure and L arm discomfort that began this ss morning. PT reports that he has mild chest pressure yesterday, but didn't think much of it. Pt states, "I'm supposed to have a cardiac ablation for an irregular heart beat so I can have my knee surgery.". Coronavirus screen: Client denies travel out of the [place] in the last 14 days. Ebola Screen: Patient denies exposure to infectious person. Patient denies travel to an Ebola-affected area in the 21 days before illness onset. Initial Sepsis Screen: Does the patient meet any 2 criteria? No. Patient's initial sepsis screen is negative. Does the patient have a suspected source of infection? No. Patient's initial sepsis screen is negative. Risk Assessment: Do you want to hurt yourself or someone else? Patient reports no desire to harm self or others. Onset of symptoms was July 22, 2022. 08:03 Method Of Arrival: Ambulatory ss 08:03 Acuity: NOELLE 3 ss Triage Assessment: 08:10 General: Appears in no apparent distress. uncomfortable, obese, Behavior is calm, bp cooperative, appropriate for age. Pain: Complains of pain in chest. EENT: No deficits noted. Neuro: No deficits noted. Cardiovascular: Rhythm is sinus arrythmia. Respiratory: No deficits noted. GI: No signs and/or symptoms were reported involving the gastrointestinal system. : No signs and/or symptoms were reported regarding the genitourinary system. Derm: No deficits noted. Musculoskeletal: No deficits noted. Historical: - Allergies: 08:06 Bananas; ss - Home Meds: 08:48 atorvastatin 10 mg oral tab 1 tab once daily [Active]; Jardiance 25 mg oral tab 1 tab bp once daily [Active]; lisinopril-hydrochlorothiazide 20-25 mg oral tab 1 tab once daily [Active]; Trulicity 4.5 mg/0.5 mL subcutaneous pnij 0.5 mL once wkly [Active]; metoprolol tartrate 50 mg Oral tab 1 tab 2 times per day [Active]; modafinil 200 mg oral tab 1 tab once daily [Active]; gabapentin 300 mg oral cap 1 cap 3 times per day [Active]; - PMHx: 08:06 "irregular heart beat"; ss - Immunization history:: Client reports receiving the 2nd dose of the Covid vaccine. - Social history:: Smoking status: Patient/guardian denies using tobacco, the patient reports quitting approximately 20 years ago. Screenin:10 Abuse screen: Denies threats or abuse. Denies injuries from another. Nutritional bp screening: No deficits noted. Tuberculosis screening: No symptoms or risk factors identified. Fall Risk None identified. Assessment: 08:10 General: SEE TRIAGE NOTE. bp 10:00 Reassessment: No changes from previously documented assessment. Patient and/or family bp updated on plan of care and expected duration. Pain level reassessed. REPEAT TROP SENT. 11:38 Pain: Pain does not radiate. Pain began suddenly. ap3 Vital Signs: 08:03 BP 147 / 63; Pulse 92; Resp 18; Temp 98.7(O); Pulse Ox 98% on R/A; Weight 127.91 kg ss (R); Height 6 ft. 0 in. (182.88 cm); Pain 6/10; 08:36 BP 137 / 62; Pulse 82; Pulse Ox 99% on R/A; ap3 09:04 BP 117 / 73; Pulse 87; Pulse Ox 99% on R/A; ap3 10:40 BP 111 / 66; Pulse 83; Resp 16; Pulse Ox 98% ; bp 08:03 Body Mass Index 38.25 (127.91 kg, 182.88 cm) ED Course: 07:54 Patient arrived in ED. as 07:55 Pura Pham MD is Private Physician. as 07:55 Rahul Crandall MD is Private Physician. as 07:55 Tomeka Jacinto F[facility]-C [facility]. snw 07:55 Sal Jim MD is Attending Physician. snw 08:04 Danyel Daniel, [place] is Primary Nurse. bp 08:06 Triage completed. ss 08:06 Arm band placed on right wrist. ss 08:10 Patient has correct armband on for positive identification. Bed in low position. Call bp light in reach. Side rails up X2. Adult w/ patient. Client placed on continuous cardiac and pulse oximetry monitoring. NIBP monitoring applied. 08:18 EKG done, by ED staff, reviewed by Tomeka OSUNA. Inserted saline lock: 20 gauge ap3 in right antecubital area, using aseptic technique. Blood collected. 08:26 XRAY Chest (1 view) In Process Unspecified. EDMS 10:04 Tomeka Jacinto FNP-C is PHCP. snw 11:37 Patient maintains SpO2 saturation greater than 95% on room air. ap3 11:42 Rahul Crandall MD is Referral Physician. snw 12:04 No provider procedures requiring assistance completed. IV discontinued, intact, ap3 bleeding controlled, No redness/swelling at site. Pressure dressing applied. Administered Medications: 08:15 Drug: Aspirin Chewable Tablet 324 mg Route: PO; bp 12:05 Follow up: Response: No adverse reaction ap3 08:34 Not Given (pt took prior to arrivall): Metoprolol TARTRATE 50 mg PO once snw Medication: 11:38 VIS not applicable for this client. ap3 Outcome: 11:42 Discharge ordered by . snw 12:04 Discharged to home ambulatory, with family. ap3 12:04 Condition: good 12:04 Discharge instructions given to patient, family, Instructed on discharge instructions, follow up and referral plans. Demonstrated understanding of instructions, follow-up care. 12:04 Patient left the ED. ap3 Signatures: Dispatcher [employer] EDTN Tomeka Jacinto FNP-C FNP-Margaret Jiang Shelby RN RN Danyel Ruff RN RN bp Perla Chery RN RN ap3 Corrections: (The following items were deleted from the chart) 10:45 10:40 Pulse 83bpm; Resp 16bpm; Pulse Ox 98%; bp bp
[2022-07-23 14:54] VITALS: TEMP 98.7
[2022-07-23 15:06] VITALS: BP 111/66; O2SAT 98
== END 2022-07-23 12:04 | disposition home or self-care (01) ==
LOC: ER 07:53
DX: R07.89 Other chest pain (principal); R00.2 Palpitations; Z91.018 Allergy to other foods
CPT/HCPCS: 36415; 71045; 80048; 80076; 83735; 83880; 84484; 85025; 85610; 93005; 99285